=== PATIENT | female | born 1945 | race Caucasian/White ===

== ENCOUNTER 2016-10-23 08:40 | Outpatient (CLI) | payer MEDICARE, OTHER | END 2016-10-23 08:41 | DX: E55.9 Vitamin D deficiency, unspecified (principal); E03.9 Hypothyroidism, unspecified; Z79.899 Other long term (current) drug therapy; I10 Essential (primary) hypertension; Z98.0 Intestinal bypass and anastomosis status; R30.0 Dysuria ==

== ENCOUNTER 2016-11-12 13:01 | Outpatient (CLI) | payer MEDICARE, OTHER | END 2016-11-12 13:02 | disposition home or self-care (01) | DX: G47.33 Obstructive sleep apnea (adult) (pediatric) (principal) | CPT/HCPCS: 99214; G0463 ==

== ENCOUNTER 2016-11-27 15:01 | Outpatient (CLI) | payer MEDICARE, OTHER | END 2016-11-27 15:02 | disposition critical access hospital (66) | DX: M54.5 Low back pain (principal); M25.551 Pain in right hip; M79.604 Pain in right leg; W19.XXXA Unspecified fall, initial encounter; Y92.002 Bathroom of unspecified non-institutional (private) residence as the place of occurrence of the external cause | CPT/HCPCS: A0425; A0429 ==

== ENCOUNTER 2016-11-27 15:09 | Emergency (ER) | payer MEDICARE, OTHER ==
[2016-11-27] MEDS ORDERED: oxyCOD/ACETAMIN 5 MG/325 MG TABLET PO STA ×2 (15:16→15:17)
[2016-11-27] MEDS ORDERED: oxyCOD/ACETAMIN 5 MG/325 MG TABLET PO ONE (15:19)
== END 2016-11-27 16:32 | disposition home or self-care (01) ==
DX: S39.012A Strain of muscle, fascia and tendon of lower back, initial encounter (principal); W01.0XXA Fall on same level from slipping, tripping and stumbling without subsequent striking against object, initial encounter; G89.29 Other chronic pain; I10 Essential (primary) hypertension; Z98.1 Arthrodesis status
CPT/HCPCS: 72070; 72100; 99283; 99284; A9270

== ENCOUNTER 2016-12-03 13:59 | Outpatient (CLI) | payer MEDICARE, OTHER | END 2016-12-03 14:00 | disposition home or self-care (01) | DX: Z12.31 Encounter for screening mammogram for malignant neoplasm of breast (principal); Z80.3 Family history of malignant neoplasm of breast ==

== ENCOUNTER 2016-12-04 17:31 | Outpatient (CLI) | payer MEDICARE, OTHER | END 2016-12-04 17:32 | disposition home or self-care (01) | DX: S82.831A Other fracture of upper and lower end of right fibula, initial encounter for closed fracture (principal); M17.11 Unilateral primary osteoarthritis, right knee ==

== ENCOUNTER 2017-06-04 10:37 | Outpatient (CLI) | payer OTHER, MEDICARE ==
--- NOTE | 2017-06-04 15:23 | XRAY Report ---
FOUR VIEW RIGHT KNEE: 06/04/2017 CLINICAL INDICATION: Pain. FINDINGS: AP, lateral, bilateral oblique views of the right knee are compared to previous films of 0 12/04/2016. Healed proximal fibular fracture is noted. Moderate osteoarthritis is present. There is no evidence o f acute fracture or dislocation. No effusion is seen. IMPRESSION: MODERATE OSTEOARTHRITIS. HEALED PROXIMAL FIBULAR FRACTURE. JOB #: [id number] EXT JOB #:[id number]
--- NOTE | 2017-06-04 15:26 | XRAY Report ---
THREE VIEW LUMBAR SPINE: 06/04/2017 CLINICAL INDICATION: Pain, DJD. COMPARISON: 11/27/2016. FINDINGS: AP, lateral, and coned down views of the lumbar spine demonstrate stable posterior eligio and pedicle screw fusion of L4 to L5, with discectomy changes and stable anterolisthesis. There is no ev idence of interval fracture or hardware complication. Degenerative disk and facet disease is present. The bowel gas pattern is normal. IMPRESSION: STABLE DEGENERATIVE CHANGES AND PREVIOUS POSTERIOR FUSION OF L4 TO L5. NO EVIDENCE OF FR ACTURE. JOB #: [id number] EXT JOB #:[id number]
== END 2017-06-04 10:38 | disposition home or self-care (01) ==
LOC: DI 10:37
PROVIDERS: ATTEND Physician Assistant Medical
DX: M17.11 Unilateral primary osteoarthritis, right knee (principal); M51.36 Other intervertebral disc degeneration, lumbar region; Z98.1 Arthrodesis status
CPT/HCPCS: 72100

== ENCOUNTER 2017-08-27 16:10 | Outpatient (CLI) | payer MEDICARE, OTHER | END 2017-08-27 16:11 | disposition home or self-care (01) | LOC: LAB.R 16:10 | PROVIDERS: ATTEND Nurse Practitioner Primary Care | DX: N39.0 Urinary tract infection, site not specified (principal) | CPT/HCPCS: 87077; 87086 ==

== ENCOUNTER 2017-10-31 08:00 | Outpatient (CLI) | payer MEDICARE, OTHER ==
[2017-10-31 14:38] LABS: BASOPHILS # (AUTO) 0.1 10^3/uL (0.0-0.1); BASOPHILS % (AUTO) 0.7 %; EOSINOPHILS # (AUTO) 0.4 10^3/uL (0.0-0.7); EOSINOPHILS % (AUTO) 5.1 %; HGB - HEMOGLOBIN 12.1 g/dL (12.0-16.0); LYMPHOCYTES # (AUTO) 2.3 10^3/uL (1.5-3.5); LYMPHOCYTES % (AUTO) 32.2 %; MEAN CORPUSCULAR HEMOGLOBIN 28.5 pg (27.0-31.0); MEAN CORPUSCULAR HGB CONC 32.9 g/dL (32.0-36.0); MEAN CORPUSCULAR VOLUME 86.5 fL (81.0-99.0); MEAN PLATELET VOLUME 10.4 fL (7.9-10.8); MONOCYTES # (AUTO) 0.6 10^3/uL (0.0-1.0); MONOCYTES % (AUTO) 8.5 %; NEUTROPHILS # (AUTO) 3.9 10^3/uL (1.5-6.6); NEUTROPHILS % (AUTO) 53.5 %; PLT - PLATELET COUNT 217 10^3/uL (130-450); RED BLOOD COUNT 4.26 10^6/uL (4.20-5.40); RED CELL DISTRIBUTION WIDTH 14.5 % (12.0-15.0); WHITE BLOOD COUNT 7.2 x10^3/uL (4.8-10.8)
[2017-10-31 15:01] LABS: ALBUMIN 3.6 g/dL (3.2-5.5); ALKALINE PHOSPHATASE 65 IU/L (42-121); ALT ALANINE AMINOTRANSFERASE 16 IU/L (10-60); AST ASPARTATE AMINOTRANSFERASE 20 IU/L (10-42); BILIRUBIN,TOTAL 0.4 mg/dL (0.2-1.0); BUN - BLOOD UREA NITROGEN 18 mg/dL (6-20); CALCIUM 8.9 mg/dL (8.5-10.3); CARBON DIOXIDE - CO2 27 mmol/L (21-32); CHLORIDE 106 mmol/L (101-111); CHOL/HDL RATIO 3.5 (<4.4); CHOLESTEROL 175 mg/dL; GFR - MDRD 55 (>89); GLUCOSE 81 mg/dL (70-100); HDL CHOLESTEROL 50 mg/dL; LDL CHOLESTEROL,CALCULATED 107 mg/dL; LDL/HDL RATIO 2.1 (<4.4); SODIUM 139 mmol/L (135-145); TOTAL PROTEIN 7.2 g/dL (6.7-8.2); VLDL CHOLESTEROL 18 mg/dL
[2017-11-01 10:21] LABS: HEPATITIS C ANTIBODY NON-REACTIVE (NON-REACTIVE)
== END 2017-10-31 08:01 | disposition home or self-care (01) ==
LOC: LAB.R 08:00
PROVIDERS: ATTEND Physician Assistant Medical
DX: E55.9 Vitamin D deficiency, unspecified (principal); I10 Essential (primary) hypertension; E03.9 Hypothyroidism, unspecified; Z79.899 Other long term (current) drug therapy; Z11.59 Encounter for screening for other viral diseases; Z72.89 Other problems related to lifestyle; E66.9 Obesity, unspecified; Z68.35 Body mass index [BMI] 35.0-35.9, adult
CPT/HCPCS: 80053; 80061; 82306; 83721; 84443; 85025; 86803

== ENCOUNTER 2017-11-25 11:19 | Outpatient (CLI) | payer MEDICARE, OTHER | END 2017-11-25 11:20 | disposition home or self-care (01) | LOC: SC 11:19 | PROVIDERS: ATTEND Nurse Practitioner Family | DX: G47.33 Obstructive sleep apnea (adult) (pediatric) (principal) | CPT/HCPCS: 99214; G0463; 99212 ==

== ENCOUNTER 2017-12-04 15:10 | Outpatient (CLI) | payer MEDICARE, OTHER ==
--- NOTE | 2017-12-05 11:50 | Mammography Report ---
DIGITAL SCREENING MAMMOGRAM: 12/04/2017 CLINICAL INDICATION: A 72-year-old with family history of breast cancer, for screening COMPARISON: 11/2016, 11/2015, 11/2014, 11/2013, 11/2012, 09/2011, 04/2010. TECHNIQUE: Routine CC and MLO projections were obtained of the breasts. FINDINGS: Parenchymal tissue within both breasts is heterogeneously dense, which may lower the sensitivity of mammography; however, there are no dominant masses, suspicious microcalcifications, or secondary signs of malignancy. In comparison to the previous studies, there are no significant changes. ASSESSMENT: NO MAMMOGRAPHIC EVIDENCE OF MALIGNANCY. NO SIGNIFICANT INTERVAL CHANGES. RECOMMENDATION: Screening mammography is recommended annually. BIRADS category 1 - negative. STANDARD QUALIFYING STATEMENTS: 1. This examination was reviewed with the aid of Computed-Aided Detection (CAD). 2. A negative or benign imaging report should not delay biopsy if clinically suspicious findings are present. Consider surgical consultation if warranted. More than 5% of cancers are not identified by imaging. 3. Dense breasts may obscure an underlying neoplasm. TD: 12/05/2017 11:49
== END 2017-12-04 15:11 | disposition home or self-care (01) ==
LOC: DI 15:10
PROVIDERS: ATTEND Physician Assistant Medical
DX: Z12.31 Encounter for screening mammogram for malignant neoplasm of breast (principal); Z80.3 Family history of malignant neoplasm of breast
CPT/HCPCS: 77067

== ENCOUNTER 2018-02-24 15:55 | Outpatient (CLI) | payer MEDICARE, OTHER ==
--- NOTE | 2018-02-25 16:21 | XRAY Report ---
Procedure Date: 02/24/2018 Accession Number: [id number] / [id number] Procedure: XR - Ankle 3 View LT CPT Code: FULL RESULT: EXAM: LEFT ANKLE RADIOGRAPHY EXAM DATE: 02/24/2018 04:53 PM. CLINICAL HISTORY: Leg pain and edema. No known trauma. COMPARISON: None. TECHNIQUE: 3 views. FINDINGS: Bones: No acute fractures or worrisome bone lesions. Calcaneal enthesophytes noted. Joints: Normal. No effusion. No subluxations. The ankle mortise is normally aligned. Soft Tissues: Diffuse soft tissue sign is present. IMPRESSION: 1. No acute fracture or osseous lesion. 2. Diffuse soft tissue swelling. RADIA
--- NOTE | 2018-02-25 16:23 | XRAY Report ---
Procedure Date: 02/24/2018 Accession Number: [id number] / [id number] Procedure: XR - Knee 4 View LT CPT Code: FULL RESULT: EXAM: LEFT KNEE RADIOGRAPHY EXAM DATE: 02/24/2018 04:53 PM. CLINICAL HISTORY: Leg pain and swelling, no known trauma. COMPARISON: None. TECHNIQUE: 3 views. FINDINGS: Bones: No acute fractures or bone lesions. Joints: No effusion. Mild to moderate degenerative changes are present. Soft Tissues: Diffuse soft tissue swelling noted. IMPRESSION: 1. No acute fracture or osseous lesion. 2. Mild to moderate degenerative changes. 3. Diffuse soft tissue swelling. RADIA
--- NOTE | 2018-02-25 16:24 | XRAY Report ---
Procedure Date: 02/24/2018 Accession Number: [id number] / [id number] Procedure: XR - Tib/Fib LT CPT Code: FULL RESULT: EXAM: LEFT TIBIA/FIBULA RADIOGRAPHY EXAM DATE: 02/24/2018 04:53 PM. CLINICAL HISTORY: LEG PAIN,LEFT. COMPARISON: None. TECHNIQUE: 2 views. FINDINGS: Bones: No acute fracture or bone lesion. Joints: Normal alignment. Soft Tissues: Diffuse soft tissue swelling. Vascular calcifications noted. IMPRESSION: 1. No acute fracture or osseous abnormality. 2. Diffuse soft tissue swelling. RADIA
--- NOTE | 2018-03-04 13:52 | Ultrasound Report ---
Procedure Date: 02/24/2018 Accession Number: [id number] / [id number] Procedure: US - Duplex Ext Veins Left CPT Code: FULL RESULT: EXAM: Duplex Ext Veins Left DATE: 02/24/2018 5:06 PM CLINICAL HISTORY: LEG PAIN,LEFT COMPARISON: 04/03/2015 TECHNIQUE: Real-time sonographic vascular imaging was performed by the asphalt coater through the lower extremity utilizing both color-flow and Doppler spectral analysis. Multiple outside dealer sales representative static images were saved for review. FINDINGS: Common Femoral Vein (CFV): Normal. Superficial Femoral Vein (SFV) Prox: Normal. Superficial Femoral Vein (SFV) Mid: Normal. Superficial Femoral Vein (SFV) Dist: Normal. Popliteal Vein: Normal. Posterior Tibial Veins: Normal. Peroneal Veins: Normal. Other: None. IMPRESSION: Normal. No evidence for deep venous thrombosis. RADIA
== END 2018-02-24 15:56 | disposition home or self-care (01) ==
LOC: DI 15:55
PROVIDERS: ATTEND Physician Assistant Medical
DX: M79.605 Pain in left leg (principal); R60.0 Localized edema

== ENCOUNTER 2018-02-24 16:51 | Outpatient (CLI) | payer MEDICARE, OTHER | END 2018-02-24 16:52 | disposition home or self-care (01) | LOC: DI 16:51 | PROVIDERS: ATTEND Physician Assistant Medical | DX: M79.605 Pain in left leg (principal); R60.0 Localized edema ==

== ENCOUNTER 2018-03-11 12:01 | Outpatient (CLI) | payer MEDICARE, OTHER ==
[2018-03-11 16:11] LABS: BASOPHILS % (AUTO) 0.6 %; EOSINOPHILS # (AUTO) 0.3 10^3/uL (0.0-0.7); EOSINOPHILS % (AUTO) 4.5 %; HGB - HEMOGLOBIN 12.8 g/dL (12.0-16.0); LYMPHOCYTES # (AUTO) 2.4 10^3/uL (1.5-3.5); LYMPHOCYTES % (AUTO) 34.8 %; MEAN CORPUSCULAR HEMOGLOBIN 28.6 pg (27.0-31.0); MEAN CORPUSCULAR HGB CONC 32.3 g/dL (32.0-36.0); MEAN CORPUSCULAR VOLUME 88.7 fL (81.0-99.0); MEAN PLATELET VOLUME 10.5 fL (7.9-10.8); MONOCYTES # (AUTO) 0.5 10^3/uL (0.0-1.0); MONOCYTES % (AUTO) 7.7 %; NEUTROPHILS # (AUTO) 3.7 10^3/uL (1.5-6.6); NEUTROPHILS % (AUTO) 52.4 %; PLT - PLATELET COUNT 213 10^3/uL (130-450); RED BLOOD COUNT 4.48 10^6/uL (4.20-5.40); RED CELL DISTRIBUTION WIDTH 14.4 % (12.0-15.0)
== END 2018-03-11 12:02 | disposition home or self-care (01) ==
LOC: LAB.R 12:01
PROVIDERS: ATTEND Physician Assistant Medical
DX: M79.605 Pain in left leg (principal); Z79.899 Other long term (current) drug therapy
CPT/HCPCS: 82607; 85025; 85651; 86140

== ENCOUNTER 2018-06-16 12:13 | Outpatient (CLI) | payer MEDICARE, OTHER ==
[2018-06-16 12:32] LABS: BASOPHILS # (AUTO) 0.1 10^3/uL (0.0-0.1); BASOPHILS % (AUTO) 0.7 %; EOSINOPHILS # (AUTO) 0.3 10^3/uL (0.0-0.7); EOSINOPHILS % (AUTO) 4.1 %; HGB - HEMOGLOBIN 13.2 g/dL (12.0-16.0); LYMPHOCYTES # (AUTO) 2.9 10^3/uL (1.5-3.5); LYMPHOCYTES % (AUTO) 34.7 %; MEAN CORPUSCULAR HEMOGLOBIN 29.3 pg (27.0-31.0); MEAN CORPUSCULAR HGB CONC 33.6 g/dL (32.0-36.0); MEAN CORPUSCULAR VOLUME 87.1 fL (81.0-99.0); MEAN PLATELET VOLUME 9.6 fL (7.9-10.8); MONOCYTES # (AUTO) 0.8 10^3/uL (0.0-1.0); MONOCYTES % (AUTO) 9.4 %; NEUTROPHILS # (AUTO) 4.3 10^3/uL (1.5-6.6); NEUTROPHILS % (AUTO) 51.1 %; PLT - PLATELET COUNT 219 10^3/uL (130-450); RED BLOOD COUNT 4.52 10^6/uL (4.20-5.40); RED CELL DISTRIBUTION WIDTH 14.2 % (12.0-15.0); WHITE BLOOD COUNT 8.4 x10^3/uL (4.8-10.8)
[2018-06-16 12:50] LABS: ALBUMIN 4.2 g/dL (3.2-5.5); ALBUMIN/GLOBULIN RATIO 1.1 (1.0-2.2); ALKALINE PHOSPHATASE 70 IU/L (42-121); ALT ALANINE AMINOTRANSFERASE 23 IU/L (10-60); AST ASPARTATE AMINOTRANSFERASE 24 IU/L (10-42); BILIRUBIN,TOTAL 0.7 mg/dL (0.2-1.0); BUN - BLOOD UREA NITROGEN 21 mg/dL (6-20); CALCIUM 9.3 mg/dL (8.5-10.3); CARBON DIOXIDE - CO2 28 mmol/L (21-32); CHLORIDE 102 mmol/L (101-111); GFR - MDRD 55 (>89); GLUCOSE 93 mg/dL (70-100); SODIUM 136 mmol/L (135-145); TOTAL PROTEIN 8.1 g/dL (6.7-8.2)
[2018-06-16 13:09] LABS: CRP - C-REACTIVE PROTEIN < 1.0 mg/dL (0-1.0)
--- NOTE | 2018-06-16 14:00 | XRAY Report ---
Reason: LEG PAIN,LEFT,BACK PAIN LUMBAR Procedure Date: 06/16/2018 Accession Number: [id number] / [id number] Procedure: XR - Lumbar Spine Complete CPT Code: FULL RESULT: EXAM: LUMBOSACRAL SPINE RADIOGRAPHY EXAM DATE: 06/16/2018 01:01 PM. CLINICAL HISTORY: History of lumbar surgery. Acute low back and left leg pain. COMPARISONS: Lumbar spine complete 06/04/2017. TECHNIQUE: 5 views. FINDINGS: Alignment: Stable 8 mm anterior subluxation L4 on L5. Stable 5 mm anterior subluxation L5 on S1. Bones: Five [id number]-[id number] lumbar vertebral bodies are present. Old mild wedging T12. Disks: Remote L4-L5 interbody and posterior fusion. Good distraction of the L4-L5 disk space. Increasing narrowing of L5-S1 now moderate to marked in degree with mild bony reactive changes. Facets: Moderate degenerative changes L5-S1 facets. Sacroiliac Joints: Unremarkable. Soft Tissues: Cholecystectomy. IMPRESSION: 1. No acute bony abnormality. 2. Stable L4-L5 fusion. 3. Progression of degenerative disk disease L5-S1 now moderate in degree. RADIA
== END 2018-06-16 12:14 | disposition home or self-care (01) ==
LOC: LAB 12:13 → DI 12:14
PROVIDERS: ATTEND Physician Assistant Medical
DX: M47.9 Spondylosis, unspecified (principal); M51.37 Other intervertebral disc degeneration, lumbosacral region; Z98.1 Arthrodesis status; M79.605 Pain in left leg
CPT/HCPCS: 36415; 72110; 80053; 85025; 85651; 86140

== ENCOUNTER 2018-07-01 10:25 | Outpatient (CLI) | payer MEDICARE, OTHER ==
--- NOTE | 2018-07-01 14:08 | XRAY Report ---
Reason: KNEE PAIN,RIGHT STANDING, BACK PAIN LUMBAR FLEX/EX Procedure Date: 07/01/2018 Accession Number: [id number] / [id number] Procedure: XR - Knee 3 View BILAT CPT Code: FULL RESULT: EXAMS: 1. Right Knee Radiography 2. Left Knee Radiography EXAM DATE:07/01/2018 11:11 AM. CLINICAL HISTORY:KNEE PAIN,RIGHT STANDING, BACK PAIN LUMBAR FLEX/EX. COMPARISON: Left knee 02/24/2018 and right knee 06/04/2017. TECHNIQUE: 3 views each. FINDINGS: Right Knee: Bones: No fractures or bone lesions. Joints: There is moderate to severe joint space narrowing and hypertrophic change of the lateral femorotibial compartment. There are moderate to severe degenerative changes of the patellofemoral joint. Soft Tissues: No effusion. No soft tissue swelling. Left Knee: Bones: No fractures or bone lesions. Joints: There are mild degenerative changes of the medial and lateral femorotibial compartments. There are moderate degenerative changes of the patellofemoral joint. Soft Tissues: No effusion. No soft tissue swelling. IMPRESSION: 1. Moderate to severe right knee osteoarthritis 2. Mild to moderate left knee osteoarthritis RADIA
--- NOTE | 2018-07-01 14:44 | XRAY Report ---
Reason: LOW BACK PAIN Procedure Date: 07/01/2018 Accession Number: [id number] / [id number] Procedure: XR - Lumbar Spine w/Flex/Ext CPT Code: FULL RESULT: EXAM: LUMBOSACRAL SPINE RADIOGRAPHY EXAM DATE: 07/01/2018 11:11 AM. CLINICAL HISTORY: Low back pain. COMPARISONS: Lumbar spine complete 06/16/2018 12:23 PM. TECHNIQUE: AP, lateral neutral, flexion, and extension views. FINDINGS: The patient is status post L4-L5 diskectomy with posterior decompression and fusion in the setting of L4 on L5 anterolisthesis, approximately 3 mm and unchanged compared to the recent study. Hardware including pedicle screws and bilateral interlocking rods at the L4-L5 level and the interbody graft appear unchanged. There is no osseous fusion between the vertebral bodies of L4 and L5 as yet. Fusion of the posterior elements at L4 and L5 likely is the result of bone graft material placement. The majority of lumbar spinal motion occurs at L2-L3 and to a lesser degree at L3-L4. IMPRESSION: Status post lumbar fusion with motion predominantly at L2-L3 as described. RADIA
== END 2018-07-01 10:26 | disposition home or self-care (01) ==
LOC: DI 10:25
PROVIDERS: ATTEND Physician Assistant Medical
DX: M17.0 Bilateral primary osteoarthritis of knee (principal); Z98.1 Arthrodesis status; M54.5 Low back pain
CPT/HCPCS: 72114

== ENCOUNTER 2018-11-15 19:24 | Emergency (ER) | payer MEDICARE, OTHER ==
--- NOTE | 2018-11-15 19:53 | ED Physician Documentation ---
History of Present Illness - Stated complaint Stated Complaint: LEG PAIN, JAW TIGHTENED UP AND SHAKING - Chief complaint Chief Complaint: General - History obtained from History obtained from: Patient, Family - History of Present Illness Timing: Today (This is a 73-year-old woman with hypertension and chronic incontinence who presents with shaking chills that started about 5 PM. She describes cramps in the back of both of her legs and then she was shaking uncontrollably especially in her arms. She felt cold the whole time. She denies runny nose cough or new urinary complaints.) Review of Systems Constitutional: reports: Chills. denies: Fever, Fatigue Nose: denies: Rhinorrhea / runny nose, Congestion Throat: denies: Dental pain / toothache, Sore throat Respiratory: denies: Dyspnea, Cough GI: denies: Abdominal Pain, Nausea, Vomiting, Diarrhea PD PAST MEDICAL HISTORY - Past Medical History Past Medical History: Yes Cardiovascular: Hypertension Respiratory: Sleep apnea Endocrine/Autoimmune: HyPOthyroidism GI: Hiatal hernia [employer]: Other Musculoskeletal: Chronic back pain - Past Surgical History Past Surgical History: Yes General: Gastric surgery Ortho: Spine surgery /[employer]: section - Present Medications Home Medications: Ambulatory Orders Medication Instructions Recorded Confirmed Gabapentin 300 mg PO BID 11/27/16 11/27/16 Levothyroxine Sodium [Levoxyl] 200 mcg PO DAILY 11/27/16 11/27/16 Lidocaine Patch 5% [Lidoderm Patch] 5 TD PRN PRN 11/27/16 Losartan Potassium [Cozaar] 100 mg PO DAILY 11/27/16 11/27/16 Oxycodone HCl/Acetaminophen 1 - 2 each PO Q6H PRN #14 tablet 11/27/16 [Percocet 5-325 mg Tablet] Ciprofloxacin HCl [Cipro] 500 mg PO BID #14 tablet 11/15/18 Omeprazole 20 mg PO DAILY 11/15/18 11/15/18 - Allergies Allergies/Adverse Reactions: Allergies Allergy/AdvReac Type Severity Reaction Status Date / Time Sulfa (Sulfonamide Allergy Hives Verified 11/15/18 19:31 Antibiotics) tape Allergy Rash Uncoded 11/15/18 19:31 - Social History Does the pt smoke?: No Smoking Status: Never smoker Does the pt drink ETOH?: No Does the pt have substance abuse?: No - Immunizations Immunizations are current?: Yes - POLST Patient has POLST: No PD ED PE NORMAL - Vitals Vital signs reviewed: Yes - General General: Alert and oriented X 3, No acute distress - HEENT HEENT: PERRL, EOMI, Pharynx benign - Neck Neck: Supple, no meningeal sign, No bony TTP - Cardiac Cardiac: RRR, No murmur - Respiratory Respiratory: No respiratory distress, Clear bilaterally - Abdomen Abdomen: Soft, Non tender - Derm Derm: No rash - Extremities Extremities: No deformity, No tenderness to palpate, No edema, No calf tendernes s / cord - Neuro Neuro: Alert and oriented X 3, Normal speech Results - Vitals Vitals: Vital Signs - 24 hr 11/15/18 11/15/18 19:26 19:49 Temperature 36.7 C Heart Rate 92 97 Respiratory 16 16 Rate Blood Pressure 198/59 H 153/80 H O2 Saturation 97 100 Oxygen O2 Source Room air - Labs Labs: Laboratory Tests 11/15/18 11/15/18 11/15/18 19:47 19:53 20:05 WBC 7.3 RBC 4.46 Hgb 13.0 Hct 38.7 MCV 86.7 MCH 29.2 MCHC 33.7 RDW 14.0 Plt Count 240 MPV 9.5 Neut # (Auto) 6.7 H Lymph # (Auto) 0.6 L [place] # (Auto) 0.0 Eos # (Auto) 0.0 Baso # (Auto) 0.0 Absolute Nucleated RBC 0.00 Nucleated RBC % 0.0 Sodium Potassium Chloride Carbon Dioxide Anion Gap BUN Creatinine Estimated GFR (MDRD) Glucose Lactic Acid Calcium Total Bilirubin AST ALT Alkaline Phosphatase Total Protein Albumin Globulin Albumin/Globulin Ratio Lipase Urine Color YELLOW Urine Clarity HAZY Urine pH 6.5 Ur Specific [place] 1.010 Urine Protein NEGATIVE Urine Glucose (UA) NEGATIVE Urine Ketones NEGATIVE Urine Occult Blood TRACE-INTA Urine Nitrite POSITIVE H Urine Bilirubin NEGATIVE Urine Urobilinogen 0.2 (NORMAL) Ur Leukocyte Esterase MODERATE H Urine RBC 0-5 Urine WBC 11-25 H Urine WBC Clumps Ur Squamous Epith Cells MANY Squamous H Urine Bacteria Many H Ur Microscopic Review INDICATED Urine Culture Comments NOT INDICATED Influenza A (Rapid) Negative Influenza B (Rapid) Negative 11/15/18 11/15/18 11/15/18 20:05 20:05 21:20 WBC RBC Hgb Hct MCV MCH MCHC RDW Plt Count MPV Neut # (Auto) Lymph # (Auto) [place] # (Auto) Eos # (Auto) Baso # (Auto) Absolute Nucleated RBC Nucleated RBC % Sodium 140 Potassium 3.7 Chloride 103 Carbon Dioxide 25 Anion Gap 12.0 BUN 22 H Creatinine 0.9 Estimated GFR (MDRD) 61 L Glucose 98 Lactic Acid 1.8 Calcium 9.5 Total Bilirubin 0.7 AST 26 ALT 16 Alkaline Phosphatase 76 Total Protein 7.6 Albumin 4.0 Globulin 3.6 Albumin/Globulin Ratio 1.1 Lipase 37 Urine Color YELLOW Urine Clarity CLEAR Urine pH 6.0 Ur Specific [place] 1.015 Urine Protein NEGATIVE Urine Glucose (UA) NEGATIVE Urine Ketones NEGATIVE Urine Occult Blood TRACE-INTA Urine Nitrite POSITIVE H Urine Bilirubin NEGATIVE Urine Urobilinogen 0.2 (NORMAL) Ur Leukocyte Esterase MODERATE H Urine RBC 6-10 H Urine WBC 11-25 H Urine WBC Clumps PRESENT Ur Squamous Epith Cells RARE Squamous Urine Bacteria Many H Ur Microscopic Review INDICATED Urine Culture Comments INDICATED Influenza A (Rapid) Influenza B (Rapid) PD MEDICAL DECISION MAKING - ED course ED course: This is a 73-year-old woman who is afebrile but presents with shaking chills. She has reassuring blood work with regard to sepsis standpoint, initial urinalysis was contaminated but suspicious and a cath UA was confirmative of the source. She was administered IM Rocephin here. Departure - Departure Disposition: 01 Home, Self Care Clinical Impression: Shaking chills UTI (urinary tract infection) Qualifiers: Urinary tract infection type: site unspecified Hematuria presence: without hematuria Qualified Code(s): N39.0 - Urinary tract infection, site not specified Condition: Good Record reviewed to determine appropriate education?: Yes Instructions: Pyelonephritis Dc Prescriptions: Ciprofloxacin HCl [Cipro] 500 mg PO BID #14 tablet Comments: We will culture your urine, the results should be done in 48-72 hours. If an antibiotic change is necessary we will call you. Return if worse in the meantime, especially if you develop increasing flank pain, fevers, or cannot keep down the medication. Follow-up with your doctor for recheck midweek Your blood pressure was elevated today on check into the emergency department. This does not mean that you have hypertension, it is a common phenomenon to come to the emergency department and have elevated blood pressure. I recommend that you see your primary care physician within the week to have it rechecked when you are feeling better.
[2018-11-15 20:08] LABS: BILIRUBIN,URINE NEGATIVE (NEGATIVE); GLUCOSE, URINE (UA) NEGATIVE (NEGATIVE); KETONES,URINE (UA) NEGATIVE (NEGATIVE); LEUKOCYTE ESTERASE, URINE MODERATE (NEGATIVE); NITRITE,URINE POSITIVE (NEGATIVE); OCCULT BLOOD,URINE TRACE-INTA (NEGATIVE); PH,URINE 6.5 PH (5.0-7.5); PROTEIN,URINE NEGATIVE (NEGATIVE); UROBILINOGEN,URINE 0.2 (NORMAL) E.U./dL (NORMAL)
[2018-11-15 20:15] LABS: BASOPHILS % (AUTO) 0.3 %; EOSINOPHILS % (AUTO) 0.5 %; LYMPHOCYTES # (AUTO) 0.6 10^3/uL (1.5-3.5); MEAN CORPUSCULAR HEMOGLOBIN 29.2 pg (27.0-31.0); MEAN CORPUSCULAR HGB CONC 33.7 g/dL (32.0-36.0); MEAN CORPUSCULAR VOLUME 86.7 fL (81.0-99.0); MEAN PLATELET VOLUME 9.5 fL (7.9-10.8); MONOCYTES % (AUTO) 0.4 %; NEUTROPHILS # (AUTO) 6.7 10^3/uL (1.5-6.6); NEUTROPHILS % (AUTO) 90.8 %; PLT - PLATELET COUNT 240 10^3/uL (130-450); RED BLOOD COUNT 4.46 10^6/uL (4.20-5.40); WHITE BLOOD COUNT 7.3 x10^3/uL (4.8-10.8)
[2018-11-15 20:19] LABS: BACTERIA,URINE Many /HPF (None Seen); CLARITY,URINE HAZY (CLEAR); RBC,URINE 0-5 /HPF (0-5); SQUAMOUS EPITHELIAL CELL,UR MANY Squamous (<= Few)
[2018-11-15 20:29] LABS: ALBUMIN/GLOBULIN RATIO 1.1 (1.0-2.2); BILIRUBIN,TOTAL 0.7 mg/dL (0.2-1.0); CALCIUM 9.5 mg/dL (8.5-10.3); CREATININE 0.9 mg/dL (0.4-1.0); TOTAL PROTEIN 7.6 g/dL (6.7-8.2)
--- NOTE | 2018-11-15 20:36 | XRAY Report ---
Reason: rigors Procedure Date: 11/15/2018 Accession Number: [id number] / [id number] Procedure: XR - Chest 2 View X-Ray CPT Code: 77575 FULL RESULT: EXAM: CHEST RADIOGRAPHY EXAM DATE: 11/15/2018 08:17 PM. CLINICAL HISTORY: Rigors. COMPARISON: THORACIC SPINE 2 VIEW 11/27/2016 3:18 PM. TECHNIQUE: 2 views. FINDINGS: Lungs/Pleura: Mild bibasilar atelectasis. No focal infiltrate or effusion. Mediastinum: Heart size upper normal limits. Tortuous aorta, stable. Other: None. IMPRESSION: 1. Mild bibasilar atelectasis but no infiltrate or effusion. 2. Stable upper normal limits heart size. RADIA
[2018-11-15 21:32] LABS: BILIRUBIN,URINE NEGATIVE (NEGATIVE); GLUCOSE, URINE (UA) NEGATIVE (NEGATIVE); KETONES,URINE (UA) NEGATIVE (NEGATIVE); LEUKOCYTE ESTERASE, URINE MODERATE (NEGATIVE); NITRITE,URINE POSITIVE (NEGATIVE); OCCULT BLOOD,URINE TRACE-INTA (NEGATIVE); PROTEIN,URINE NEGATIVE (NEGATIVE); UROBILINOGEN,URINE 0.2 (NORMAL) E.U./dL (NORMAL)
[2018-11-15 21:34] LABS: CLARITY,URINE CLEAR (CLEAR)
[2018-11-15 21:42] LABS: BACTERIA,URINE Many /HPF (None Seen); SQUAMOUS EPITHELIAL CELL,UR RARE Squamous (<= Few); WBC CLUMPS,URINE PRESENT
[2018-11-15] MEDS ORDERED: cefTRIAXone 1 GM VIAL IM STA (21:42)
[2018-11-15] MEDS ORDERED: LIDOCAINE 1% 2 ML VIAL MC ONE (21:42)
[2018-11-15 22:03] VITALS: BP 143/50
== END 2018-11-15 22:10 | disposition home or self-care (01) ==
LOC: ED 19:24
DX: R68.83 Chills (without fever) (principal); R25.8 Other abnormal involuntary movements; N39.0 Urinary tract infection, site not specified; I10 Essential (primary) hypertension; E03.9 Hypothyroidism, unspecified
CPT/HCPCS: 36415; 71046; 80053; 81001; 81003; 83605; 83690; 85025; 87077; 87086; 87181; 87275; 87276; 96372; 99283

== ENCOUNTER 2018-12-03 16:54 | Outpatient (CLI) | payer MEDICARE, OTHER ==
[2018-12-03 17:30] LABS: BASOPHILS # (AUTO) 0.1 10^3/uL (0.0-0.1); BASOPHILS % (AUTO) 1.1 %; EOSINOPHILS # (AUTO) 0.2 10^3/uL (0.0-0.7); EOSINOPHILS % (AUTO) 3.3 %; LYMPHOCYTES # (AUTO) 2.6 10^3/uL (1.5-3.5); LYMPHOCYTES % (AUTO) 38.4 %; MEAN CORPUSCULAR HEMOGLOBIN 28.1 pg (27.0-31.0); MEAN CORPUSCULAR HGB CONC 32.6 g/dL (32.0-36.0); MEAN CORPUSCULAR VOLUME 86.1 fL (81.0-99.0); MEAN PLATELET VOLUME 9.4 fL (7.9-10.8); MONOCYTES # (AUTO) 0.5 10^3/uL (0.0-1.0); NEUTROPHILS # (AUTO) 3.3 10^3/uL (1.5-6.6); NEUTROPHILS % (AUTO) 49.2 %; PLT - PLATELET COUNT 241 10^3/uL (130-450); RED BLOOD COUNT 4.65 10^6/uL (4.20-5.40); RED CELL DISTRIBUTION WIDTH 13.9 % (12.0-15.0); WHITE BLOOD COUNT 6.8 x10^3/uL (4.8-10.8)
[2018-12-03 17:31] LABS: BILIRUBIN,URINE NEGATIVE (NEGATIVE); GLUCOSE, URINE (UA) NEGATIVE (NEGATIVE); KETONES,URINE (UA) NEGATIVE (NEGATIVE); LEUKOCYTE ESTERASE, URINE TRACE (NEGATIVE); NITRITE,URINE NEGATIVE (NEGATIVE); OCCULT BLOOD,URINE NEGATIVE (NEGATIVE); PH,URINE 5.5 PH (5.0-7.5); PROTEIN,URINE NEGATIVE (NEGATIVE); UROBILINOGEN,URINE 0.2 (NORMAL) E.U./dL (NORMAL)
[2018-12-03 17:32] LABS: CLARITY,URINE CLEAR (CLEAR)
[2018-12-03 17:45] LABS: ALBUMIN 4.1 g/dL (3.2-5.5); ALBUMIN/GLOBULIN RATIO 1.1 (1.0-2.2); BILIRUBIN,TOTAL 0.2 mg/dL (0.2-1.0); CALCIUM 9.4 mg/dL (8.5-10.3); TOTAL PROTEIN 7.8 g/dL (6.7-8.2)
[2018-12-03 17:49] LABS: BACTERIA,URINE Rare /HPF (None Seen); RBC,URINE 0-5 /HPF (0-5); SQUAMOUS EPITHELIAL CELL,UR FEW Squamous (<= Few)
[2018-12-03 18:40] LABS: HB2 TOTAL 14.4 g/dL; HEMOGLOBIN A1C 0.59 g/dL; HEMOGLOBIN A1C % 5.9 % (4.6-6.2)
[2018-12-03 18:59] LABS: THYROID STIMULATING HORMONE 5.84 uIU/mL (0.34-5.60)
[2018-12-03 19:01] LABS: FREE T4 (FREE THYROXINE) 1.05 ng/dL (0.58-1.64)
== END 2018-12-03 16:55 | disposition home or self-care (01) ==
LOC: LAB 16:54
PROVIDERS: ATTEND Family Medicine
DX: E03.9 Hypothyroidism, unspecified (principal); M19.90 Unspecified osteoarthritis, unspecified site; I10 Essential (primary) hypertension; M15.9 Polyosteoarthritis, unspecified; N39.0 Urinary tract infection, site not specified
CPT/HCPCS: 36415; 80053; 81001; 81003; 83036; 84439; 84443; 84466; 84481; 85025; 87086

== ENCOUNTER 2018-12-21 13:40 | Outpatient (CLI) | payer MEDICARE, OTHER ==
--- NOTE | 2018-12-21 14:57 | Mammography Report ---
Reason: MAMMOGRAPHIC SCREENING FOR BREAST CANCER Procedure Date: 12/21/2018 Accession Number: [id number] / [id number] Procedure: YO - Screening Mammo w/[place] CPT Code: FULL RESULT: EXAM: Screening Mammo w/[place] DATE: 12/21/2018 2:34 PM CLINICAL HISTORY: Routine screening, family history of breast cancer TECHNIQUE: (B) - Bilateral CC and MLO views were obtained. COMPARISON: 12/04/2017, 12/03/2016, 12/05/2015 and 11/29/2014 PARENCHYMAL PATTERN: (A) - The breasts demonstrate scattered fibroglandular densities bilaterally. FINDINGS: There is been no significant interval change. There are no suspicious masses, calcifications, or areas of distortion. IMPRESSION: Negative examination. BI-RADS category 1. RECOMMENDATION: (ANNUAL) - Recommend routine annual screening mammography. BI-RADS CATEGORY: (1) - Negative. STANDARD QUALIFYING STATEMENTS: 1. This examination was not reviewed with the aid of Computer-Aided Detection (CAD). 2. A negative or benign imaging report should not preclude biopsy if clinically suspicious findings are present. 3. Dense breasts may obscure an underlying neoplasm. 4. This examination was reviewed with the aid of 3D breast imaging (tomosynthesis).
== END 2018-12-21 13:41 | disposition home or self-care (01) ==
LOC: DI 13:40
PROVIDERS: ATTEND Family Medicine
DX: Z12.31 Encounter for screening mammogram for malignant neoplasm of breast (principal); Z80.3 Family history of malignant neoplasm of breast
CPT/HCPCS: 77063; 77067

== ENCOUNTER 2019-02-18 10:43 | Outpatient (CLI) | payer MEDICARE, OTHER | END 2019-02-18 10:44 | disposition home or self-care (01) | LOC: SC 10:43 | PROVIDERS: ATTEND Nurse Practitioner Family | DX: G47.33 Obstructive sleep apnea (adult) (pediatric) (principal) | CPT/HCPCS: 99214; G0463; 99212 ==

== ENCOUNTER 2019-02-19 14:58 | Outpatient (CLI) | payer MEDICARE, OTHER ==
[2019-02-19 15:14] LABS: BASOPHILS # (AUTO) 0.1 10^3/uL (0.0-0.1); BASOPHILS % (AUTO) 0.7 %; EOSINOPHILS # (AUTO) 0.3 10^3/uL (0.0-0.7); EOSINOPHILS % (AUTO) 3.5 %; HGB - HEMOGLOBIN 11.8 g/dL (12.0-16.0); LYMPHOCYTES # (AUTO) 2.5 10^3/uL (1.5-3.5); LYMPHOCYTES % (AUTO) 30.8 %; MEAN CORPUSCULAR HEMOGLOBIN 28.4 pg (27.0-31.0); MEAN CORPUSCULAR HGB CONC 31.3 g/dL (32.0-36.0); MEAN CORPUSCULAR VOLUME 90.6 fL (81.0-99.0); MEAN PLATELET VOLUME 10.3 fL (7.9-10.8); MONOCYTES # (AUTO) 0.7 10^3/uL (0.0-1.0); MONOCYTES % (AUTO) 8.7 %; NEUTROPHILS # (AUTO) 4.5 10^3/uL (1.5-6.6); NEUTROPHILS % (AUTO) 55.9 %; PLT - PLATELET COUNT 289 10^3/uL (130-450); RED BLOOD COUNT 4.16 10^6/uL (4.20-5.40); RED CELL DISTRIBUTION WIDTH 14.2 % (12.0-15.0)
[2019-02-19 15:22] LABS: CALCIUM 9.6 mg/dL (8.5-10.3); CREATININE 0.9 mg/dL (0.4-1.0)
[2019-02-19 17:20] LABS: T4 (THYROXINE) 8.75 ug/dL (6.09-12.23)
[2019-02-19 17:24] LABS: THYROID STIMULATING HORMONE 6.93 uIU/mL (0.34-5.60)
== END 2019-02-19 14:59 | disposition home or self-care (01) ==
LOC: LAB 14:58
PROVIDERS: ATTEND Family Medicine
DX: E03.9 Hypothyroidism, unspecified (principal); R60.0 Localized edema; I10 Essential (primary) hypertension
CPT/HCPCS: 36415; 80048; 84436; 84443; 84481; 85025

== ENCOUNTER 2019-03-01 19:41 | Outpatient (CLI) | payer MEDICARE, OTHER | END 2019-03-01 19:42 | disposition home or self-care (01) | LOC: SC 19:41 | PROVIDERS: ATTEND Internal Medicine Pulmonary Disease | DX: G47.33 Obstructive sleep apnea (adult) (pediatric) (principal) | CPT/HCPCS: 95811 ==

== ENCOUNTER 2019-04-08 11:04 | Outpatient (CLI) | payer MEDICARE, OTHER ==
[2019-04-08 12:26] VITALS: BP 154/78
--- NOTE | 2019-04-08 12:26 | SLEEP CARE CONSULTATION ---
Information from patient questionnaire entered by Damaris Lau. I have reviewed and concur with the information entered by Damaris Lau. This document represents the service I personally performed and the decisions made by me, Diana Celestin, RN, MSN, [employer]. History of Present Illness Previous diagnosis: Severe, Obstructive Sleep Apnea-Hypopnea Syndrome AHI: 40.5 Reason for CPAP/BiPAP follow up: with manual titration Equipment type: BiPAP Equipment obtained from: [facility] Mask style: Nasal pillows Mask brand: [employer] Backup mask available: Yes (Has a sample [employer] nasal pillows) Last cushion change: 1 month ago HPI additional information: Patient returns for follow up of manual titration study. She reports that her sleep was interrrupted by inability to change position due to difficulty to move in different position was unable in this bed. At her home there is a headboard that she uses to help move. Sleep Study - Polysomnography Polysomnography findings: The quality of the study is good. CPAP was initiated at 10 cmH2O and titrated up to CPAP at 12 cmH2O. CPAP at 10 cmH2O appeared to be optimal (AHI of 0 per hour on the pressure). There was supine REM sleep on the pressure. Oxygen saturation was normal throughout the night (average oxygen saturation of 93% and celina oxygen saturation of 90%). The patient appeared to have tolerated positive airway pressure therapy fairly well. The patients sleep efficiency was reduced due to three prolonged awakenings after the sleep onset. The sleep architecture was otherwise normal. There was no significant periodic limb movement of sleep. Cardiac rhythm was normal sinus rhythm without significant arrhythmia. No abnormal behavior (parasomnia) observed during the night. CPAP Compliance Data - Data Reviewed with Patient Average duration of nightly device use: 7.95 Compliance rate %: 96.7 Current pressure setting (cmH2O): 16/10 Humidity settin Heated hose settin Average residual AHI: 1.5 Average large leak: 3 hrs 18 mins Subjective Missed days of use due to: reports: other (unknown day of less data - uses every night) Patient concerns: reports: mask discomfort, nasal congestion (seasonal congestion not interferring with use of the PAP), dry mouth, nose, throat (slight in the morning.), other (Current mask headgear dislodging in sleep. ). denies: aerophagia, air blowing in eyes, mask leak noise, condensation in mask/hose, epistaxis Observed to snore while using device: No On therapy, patient: reports: sleeping better, awakening more refreshed, being more awake and alert during the day, more rested overall. denies: drowsiness while driving Initial Bigelow Sleepiness Scale score: 7 Current Bigelow Sleepiness Scale score: 3 Allergies and Home Medications Known drug allergies: Yes (levaquin, flexeril, sulfa, baclofen, augmentin, paper tape and other adhesi) Home medication list reviewed: Yes Allergy and home medication list: Medication List Medication Name (generic/name brand) Strength & Dosage Gabapentin 300mg cap one am and two pm Losartan Potassium 100mg tab one daily Synthroid 200mcg tab eight per week Vitamin D3 5000Unit one daily Colace 100mg cap one daily PRN Vitamin B-12 1000mcg tab one daily Probiotic Daily Oral Cap Cap one daily Calcium Citrate +D 315-250mg tab one twice daily Fiber Gummies 2GM tab one daily Multivitamin Tab one daily Claritin 10mg cap one daily as needed Naphcon-A 0.025-0.3% ophthalmic soln One-two drops daily as needed Cranberry 500mg cap one daily Lidoderm 5% external patch One daily prn Omeprazole DR 20mg cap one daily Allergy List Levaquin Flexeril Sulfa Baclofen Augmentin Paper tape Review of Systems Review of systems same as previous: Yes Physical Exam Blood Pressure: 154/78 Cuff size: long Heart Rate: 72 O2 Saturation: 95 Weight (kg): 276 kg Impression and Plan 1. Obstructive Sleep Apnea-Hypopnea Syndrome, severe with good treatment compliance and good apnea control. On BiPAP therapy, the patient has better sle ep quality and is more rested overall. Her recent manual titration study showed that she no longer needed BiPAP to control her apnea nor was there need for oxygen supplementation. Her BiPAP is over 5 years old and starting to make more noise in function. Thus I will update her PAP device to a CPAP set at [id number] as observed as optimal pressure. I will also stop the oxygen supplementation as no longer needed per study results. Since she is having difficulty getting supplies, I will have my recruiting coordinator inform her of DME options. I explained that 2 companies have RTs that will come to home and she would like that option. Her oral dryness can be reduced with turning down the heated hose until she can update her device which has a better humidity system. Compliance guidelines discussed and enrique was informed that she needs to contact us to schedule follow up as soon as device is received. Patient's apnea severity and rationale for treatment to reduce apnea, improve sleep quality and reduce cardiovascular and cerebrovascular events was reviewed. I also reviewed the benefit of consistent device use of BiPAP for hypertension, fibromyalgia. She has an appointment with her PCP to again review her hypertension medications for better control. We also reviewed the importance of weight loss to overall health. * Update PAP and change to CPAP pressure at 10 cmH2O * Stop oxygen - [employer] * Transfer to new DME * Adjust heated hose * Notify me if snoring with mask or feeling that the pressure is too much or too little * Attempt to lose weight * Return for follow up in 1 month after new device, or sooner if concerns arise I spent 100% of this 43 minute visit face to face with the patient with greater than 50% of this was spent time counseling the patient and coordination of care.
== END 2019-04-08 11:05 | disposition home or self-care (01) ==
LOC: SC 11:04
PROVIDERS: ATTEND Nurse Practitioner Family
DX: G47.33 Obstructive sleep apnea (adult) (pediatric) (principal)
CPT/HCPCS: 99215; G0463; 99212

== ENCOUNTER 2019-05-03 22:15 | Emergency (ER) | payer MEDICARE, OTHER ==
[2019-05-03 22:54] LABS: BILIRUBIN,URINE NEGATIVE (NEGATIVE); CLARITY,URINE CLEAR (CLEAR); GLUCOSE, URINE (UA) NEGATIVE (NEGATIVE); KETONES,URINE (UA) NEGATIVE (NEGATIVE); LEUKOCYTE ESTERASE, URINE NEGATIVE (NEGATIVE); NITRITE,URINE NEGATIVE (NEGATIVE); OCCULT BLOOD,URINE NEGATIVE (NEGATIVE); PROTEIN,URINE NEGATIVE (NEGATIVE); UROBILINOGEN,URINE 0.2 (NORMAL) E.U./dL (NORMAL)
--- NOTE | 2019-05-04 00:55 | ED Physician Documentation ---
PD HPI ABD PAIN - Stated complaint Stated Complaint: FEM - Chief complaint Chief Complaint: Back Pain - History obtained from History obtained from: Patient - History of Present Illness Timing - onset: How many hours ago (2) Timing - duration: Days (2) Timing - details: Abrupt onset (onset without injury, while just sitting on sofa. Left flank pain wiht nausea.), Still present, Still present in ED Quality: Aching, Pain Location: LLQ Radiation: Left flank Improved by: No: Eating Worsened by: No: Eating Associated symptoms: Nausea, Constipation (had not had BM for couple of days.). No: Fever, Vomiting, Diarrhea, Melena Similar symptoms before: Diagnosis (has had similar with UTIs in the past.) Recently seen: Not recently seen Review of Systems Constitutional: denies: Fever, Chills, Myalgias Nose: denies: Rhinorrhea / runny nose, Congestion Throat: denies: Sore throat Cardiac: denies: Chest pain / pressure Respiratory: denies: Cough GI: reports: Abdominal Pain, Nausea, Constipation. denies: Vomiting, Diarrhea, Bloody / black stool : denies: Dysuria, Frequency Skin: denies: Rash Musculoskeletal: reports: Back pain. 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 Musculoskeletal: Chronic back pain - Past Surgical History Past Surgical History: Yes General: Gastric surgery Ortho: Spine surgery /ULTRASOUND COORDINATOR: section - Present Medications Home Medications: Ambulatory Orders Medication Instructions Recorded Confirmed Gabapentin 300 mg PO BID 11/27/16 11/27/16 Levothyroxine Sodium [Levoxyl] 200 mcg PO DAILY 11/27/16 11/27/16 Lidocaine Patch 5% [Lidoderm Patch] 5 TD PRN PRN 11/27/16 Losartan Potassium [Cozaar] 100 mg PO DAILY 11/27/16 11/27/16 Oxycodone HCl/Acetaminophen 1 - 2 each PO Q6H PRN #14 tablet 11/27/16 [Percocet 5-325 mg Tablet] Ciprofloxacin HCl [Cipro] 500 mg PO BID #14 tablet 11/15/18 Omeprazole 20 mg PO DAILY 11/15/18 11/15/18 - Allergies Allergies/Adverse Reactions: Allergies Allergy/AdvReac Type Severity Reaction Status Date / Time Sulfa (Sulfonamide Allergy Hives Verified 05/03/19 22:33 Antibiotics) tape Allergy Rash Uncoded 11/15/18 19:31 - Living Situation Living Arrangement: reports: At home - Social History Does the pt smoke?: No Smoking Status: Never smoker Does the pt drink ETOH?: No Does the pt have substance abuse?: No - Immunizations Immunizations are current?: Yes - POLST Patient has POLST: No PD ED PE NORMAL - Vitals Vital signs reviewed: Yes - General General: Alert and oriented X 3, Well developed/nourished, Other (appears in pain related to left flank. Mildly guarded ROM but not tender in muscles. ) - HEENT HEENT: Atraumatic - Neck Neck: Supple, no meningeal sign, No adenopathy - Cardiac Cardiac: RRR, No murmur - Respiratory Respiratory: Clear bilaterally - Abdomen Abdomen: Normal bowel sounds, Soft, Non distended, No organomegaly, Other (mildly tender left lateral abd without guarding, percussion, nor rebound tenderness. ) - Female Female : Deferred - Rectal Rectal: Deferred - Back Back: No spinal TTP, Other (left CVA is tender to percussion. ) - Derm Derm: Normal color, Warm and dry, No rash - Extremities Extremities: No tenderness to palpate, Normal ROM s pain, No calf tenderness / cord Results - Vitals Vitals: Vital Signs - 24 hr 05/03/19 05/04/19 22:26 02:37 Temperature 36.8 C 36.6 C Heart Rate 79 71 Respiratory 18 16 Rate Blood Pressure 193/85 H 166/69 H O2 Saturation 96 98 Oxygen O2 Source Room air - Labs Labs: Laboratory Tests 05/03/19 05/04/19 05/04/19 22:48 00:50 00:52 WBC 7.6 RBC 4.69 Hgb 13.0 Hct 41.6 MCV 88.7 MCH 27.7 MCHC 31.3 L RDW 14.4 Plt Count 273 MPV 11.2 H Neut # (Auto) 4.0 Lymph # (Auto) 2.5 [place] # (Auto) 0.7 Eos # (Auto) 0.3 Baso # (Auto) 0.1 Absolute Nucleated RBC 0.00 Nucleated RBC % 0.0 Sodium Potassium Chloride Carbon Dioxide Anion Gap BUN Creatinine Estimated GFR (MDRD) Glucose Calcium Total Bilirubin AST ALT Alkaline Phosphatase Total Protein Albumin Globulin Albumin/Globulin Ratio Lipase TSH 6.00 H Urine Color YELLOW Urine Clarity CLEAR Urine pH 6.0 Ur Specific [place] 1.010 Urine Protein NEGATIVE Urine Glucose (UA) NEGATIVE Urine Ketones NEGATIVE Urine Occult Blood NEGATIVE Urine Nitrite NEGATIVE Urine Bilirubin NEGATIVE Urine Urobilinogen 0.2 (NORMAL) Ur Leukocyte Esterase NEGATIVE Ur Microscopic Review NOT INDICATED Urine Culture Comments NOT INDICATED 05/04/19 00:52 WBC RBC Hgb Hct MCV MCH MCHC RDW Plt Count MPV Neut # (Auto) Lymph # (Auto) [place] # (Auto) Eos # (Auto) Baso # (Auto) Absolute Nucleated RBC Nucleated RBC % Sodium 141 Potassium 4.7 Chloride 105 Carbon Dioxide 28 Anion Gap 8.0 BUN 22 H Creatinine 1.0 Estimated GFR (MDRD) 54 L Glucose 114 H Calcium 9.9 Total Bilirubin 0.3 AST 24 ALT 19 Alkaline Phosphatase 71 Total Protein 8.1 Albumin 4.3 Globulin 3.8 Albumin/Globulin Ratio 1.1 Lipase 38 TSH Urine Color Urine Clarity Urine pH Ur Specific [place] Urine Protein Urine Glucose (UA) Urine Ketones Urine Occult Blood Urine Nitrite Urine Bilirubin Urine Urobilinogen Ur Leukocyte Esterase Ur Microscopic Review Urine Culture Comments - Rads (name of study) kub CT Radiology: Prelim report reviewed (no kidney stones. Diverticula but no diverticulitis. No other acute process.), See rad report PD MEDICAL DECISION MAKING - ED course Complexity details: reviewed results, re-evaluated patient (pain improved with meds. Not clear the cause of the pain. SHe is feeling better though. Presume muscular?), considered differential (seems likely kidney stone or consider divertic. Pain is left so not suspicious for GB nor appendix. ), d/w patient Departure - Departure Disposition: 01 Home, Self Care Clinical Impression: Acute left flank pain Condition: Stable Record reviewed to determine appropriate education?: Yes Instructions: ED Flank Pain Uncertain Cause Follow-Up: Matty Cervantes MD [Primary Care Provider] - Comments: Stay well-hydrated. Ibuprofen or naproxen 2-3 times a day for the next few days. Add Tylenol if needed for pains. Daily stool softener for the next several days until easy bowel movements. Recheck if not improved well over the next 2 to 3 days and return sooner if worsening or other symptoms develop. Your urine test is good. Your basic blood tests are normal. No signs of kidney infection nor kidney stones or other acute process on your CT scan. You do have some diverticula but no signs of diverticulitis. It could be early on with this and so not evident as yet on CT, and so rechecking if you have worsening symptoms. Discharge Date/Time: 05/04/19 02:46
[2019-05-04 01:04] LABS: BASOPHILS # (AUTO) 0.1 10^3/uL (0.0-0.1); BASOPHILS % (AUTO) 0.7 %; EOSINOPHILS # (AUTO) 0.3 10^3/uL (0.0-0.7); EOSINOPHILS % (AUTO) 4.4 %; LYMPHOCYTES # (AUTO) 2.5 10^3/uL (1.5-3.5); LYMPHOCYTES % (AUTO) 32.3 %; MEAN CORPUSCULAR HEMOGLOBIN 27.7 pg (27.0-31.0); MEAN CORPUSCULAR HGB CONC 31.3 g/dL (32.0-36.0); MEAN CORPUSCULAR VOLUME 88.7 fL (81.0-99.0); MEAN PLATELET VOLUME 11.2 fL (7.9-10.8); MONOCYTES # (AUTO) 0.7 10^3/uL (0.0-1.0); MONOCYTES % (AUTO) 9.8 %; NEUTROPHILS % (AUTO) 52.5 %; PLT - PLATELET COUNT 273 10^3/uL (130-450); RED BLOOD COUNT 4.69 10^6/uL (4.20-5.40); RED CELL DISTRIBUTION WIDTH 14.4 % (12.0-15.0); WHITE BLOOD COUNT 7.6 x10^3/uL (4.8-10.8)
[2019-05-04 01:09] LABS: ALBUMIN 4.3 g/dL (3.2-5.5); ALBUMIN/GLOBULIN RATIO 1.1 (1.0-2.2); BILIRUBIN,TOTAL 0.3 mg/dL (0.2-1.0); CALCIUM 9.9 mg/dL (8.5-10.3); TOTAL PROTEIN 8.1 g/dL (6.7-8.2)
[2019-05-04] MEDS ORDERED: KETOROLAC 15 MG/ML VIAL IVP STA (01:10)
[2019-05-04] MEDS ORDERED: ONDANSETRON 4 MG/2 ML VIAL IVP STA (01:10)
[2019-05-04] MEDS ORDERED: MORPHINE 2 MG/ML CARPUJECT IVP STA (01:10)
--- NOTE | 2019-05-04 01:48 | CT Report ---
Reason: left flank pain onset this evening Procedure Date: 05/04/2019 Accession Number: [id number] / [id number] Procedure: CT - Abdomen/Pelvis WO CPT Code: FULL RESULT: EXAM: CT ABDOMEN AND PELVIS (CT KUB) EXAM DATE: 05/04/2019 01:34 AM. CLINICAL HISTORY: Left flank pain onset this evening. COMPARISONS: ABDOMEN/PELVIS W/WO 01/10/2014 9:54 AM ABDOMEN/PELVIS W/ 09/16/2013 1:40 PM. TECHNIQUE: Routine axial helical CT imaging was performed through the abdomen and pelvis without IV contrast. Reconstructions: Coronal and sagittal. In accordance with CT protocol optimization, one or more of the following dose reduction techniques were utilized for this exam: automated exposure control, adjustment of mA and/or KV based on patient size, or use of iterative reconstructive technique. FINDINGS: Lung Bases: Unremarkable. Right Kidney/Ureter: Stable appearance with partially malrotated relative atrophy and mild hydronephrosis without stone disease. Partially exophytic cyst appears stable. Left Kidney/Ureter: No stones, hydronephrosis, or hydroureter. No perinephric fat stranding. Other Solid Organs: Noncontrast images of the solid organs are grossly unremarkable. Gallbladder/Bile Ducts: Unremarkable post cholecystectomy. Peritoneal Cavity: Previous sleeve gastrectomy. No free fluid, free air or [place] adenopathy. Bowel is grossly unremarkable with exception of moderate stool burden and colonic diverticulosis. Normal appendix. Pelvic Organs: No bladder stones or wall thickening. Noncontrast images of the visualized pelvic organs are unremarkable. Vasculature: Unremarkable. Other: Previous L4-L5 posterior fusion. No acute osseous abnormality seen. IMPRESSION: 1. No left urinary tract stones or obstruction. 2. 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 3. Moderate stool burden and colonic diverticulosis. 4. Previous cholecystectomy and sleeve gastrectomy. RADIA
[2019-05-04] MEDS ORDERED: DOCUSATE SODIUM 100 MG CAPSULE PO STA (01:51)
[2019-05-04 02:39] VITALS: BP 166/69
== END 2019-05-04 02:46 | disposition home or self-care (01) ==
LOC: ED 22:15
DX: R10.32 Left lower quadrant pain (principal); K57.30 Diverticulosis of large intestine without perforation or abscess without bleeding; I10 Essential (primary) hypertension
CPT/HCPCS: 36415; 74176; 81003; 83690; 96374; 96375; 99284; A9270; 80053; 81001; 84443; 85025; 87086

== ENCOUNTER 2019-06-09 14:32 | Outpatient (CLI) | payer MEDICARE, OTHER | END 2019-06-09 14:33 | disposition short-term general hospital (02) | LOC: EMS 14:32 | PROVIDERS: ATTEND Surgery | DX: M25.562 Pain in left knee (principal); Z96.652 Presence of left artificial knee joint | CPT/HCPCS: A0425; A0429 ==

== ENCOUNTER 2019-06-23 02:58 | Outpatient (CLI) | payer MEDICARE, OTHER | END 2019-06-23 02:59 | disposition EMS.NT | LOC: EMS 02:58 | PROVIDERS: ATTEND Surgery | DX: Z03.89 Encounter for observation for other suspected diseases and conditions ruled out (principal) ==

== ENCOUNTER 2019-06-28 16:28 | Outpatient (CLI) | payer MEDICARE, OTHER ==
[2019-06-28 17:11] LABS: CALCIUM 9.6 mg/dL (8.5-10.3); MAGNESIUM 2.1 mg/dL (1.7-2.8)
[2019-06-28 17:12] LABS: BASOPHILS # (AUTO) 0.1 10^3/uL (0.0-0.1); BASOPHILS % (AUTO) 0.8 %; EOSINOPHILS # (AUTO) 0.2 10^3/uL (0.0-0.7); EOSINOPHILS % (AUTO) 2.4 %; HGB - HEMOGLOBIN 9.3 g/dL (12.0-16.0); LYMPHOCYTES # (AUTO) 1.4 10^3/uL (1.5-3.5); LYMPHOCYTES % (AUTO) 16.8 %; MEAN CORPUSCULAR HEMOGLOBIN 27.9 pg (27.0-31.0); MEAN CORPUSCULAR HGB CONC 30.5 g/dL (32.0-36.0); MEAN CORPUSCULAR VOLUME 91.6 fL (81.0-99.0); MEAN PLATELET VOLUME 9.7 fL (7.9-10.8); MONOCYTES # (AUTO) 0.8 10^3/uL (0.0-1.0); MONOCYTES % (AUTO) 9.3 %; NEUTROPHILS # (AUTO) 5.9 10^3/uL (1.5-6.6); NEUTROPHILS % (AUTO) 70.2 %; PLT - PLATELET COUNT 567 10^3/uL (130-450); RED BLOOD COUNT 3.33 10^6/uL (4.20-5.40); RED CELL DISTRIBUTION WIDTH 15.7 % (12.0-15.0); WHITE BLOOD COUNT 8.4 x10^3/uL (4.8-10.8)
[2019-06-28 17:33] LABS: THYROID STIMULATING HORMONE 5.31 uIU/mL (0.34-5.60)
[2019-06-28 17:35] LABS: FREE T4 (FREE THYROXINE) 1.09 ng/dL (0.58-1.64)
== END 2019-06-28 16:29 | disposition home or self-care (01) ==
LOC: LAB 16:28
PROVIDERS: ATTEND Family Medicine
DX: Z96.653 Presence of artificial knee joint, bilateral (principal); E03.9 Hypothyroidism, unspecified; I10 Essential (primary) hypertension
CPT/HCPCS: 36415; 80048; 83735; 84439; 84443; 84481; 85025

== ENCOUNTER 2019-10-01 12:49 | Outpatient (CLI) | payer MEDICARE, OTHER ==
[2019-10-01 13:21] LABS: ABSOLUTE RETICS # AUTO 0.041 10^6/uL (0.020-0.110); BASOPHILS % (AUTO) 0.8 %; EOSINOPHILS # (AUTO) 0.2 10^3/uL (0.0-0.7); EOSINOPHILS % (AUTO) 4.1 %; HGB - HEMOGLOBIN 11.4 g/dL (12.0-16.0); LYMPHOCYTES # (AUTO) 1.2 10^3/uL (1.5-3.5); LYMPHOCYTES % (AUTO) 24.7 %; MEAN CORPUSCULAR HEMOGLOBIN 25.1 pg (27.0-31.0); MEAN CORPUSCULAR HGB CONC 30.7 g/dL (32.0-36.0); MEAN CORPUSCULAR VOLUME 81.5 fL (81.0-99.0); MEAN PLATELET VOLUME 10.8 fL (7.9-10.8); MONOCYTES # (AUTO) 0.5 10^3/uL (0.0-1.0); NEUTROPHILS # (AUTO) 2.9 10^3/uL (1.5-6.6); NEUTROPHILS % (AUTO) 59.2 %; PLT - PLATELET COUNT 295 10^3/uL (130-450); RED BLOOD COUNT 4.55 10^6/uL (4.20-5.40); WHITE BLOOD COUNT 4.9 x10^3/uL (4.8-10.8)
[2019-10-01 13:25] LABS: CALCIUM 9.5 mg/dL (8.5-10.3)
[2019-10-01 14:11] LABS: HEMOGLOBIN A1C 0.55 g/dL; HEMOGLOBIN A1C % 6.7 % (4.6-6.2)
[2019-10-01 14:25] LABS: THYROID STIMULATING HORMONE 2.93 uIU/mL (0.34-5.60)
[2019-10-01 14:27] LABS: FREE T4 (FREE THYROXINE) 1.08 ng/dL (0.58-1.64)
== END 2019-10-01 12:50 | disposition home or self-care (01) ==
LOC: LAB 12:49
PROVIDERS: ATTEND Family Medicine
DX: D62 Acute posthemorrhagic anemia (principal); Z96.653 Presence of artificial knee joint, bilateral; E03.9 Hypothyroidism, unspecified; R60.0 Localized edema; R73.09 Other abnormal glucose
CPT/HCPCS: 36415; 80048; 83036; 84439; 84443; 84481; 85025; 85045

== ENCOUNTER 2020-03-15 12:19 | Outpatient (CLI) | payer MEDICARE, OTHER | END 2020-03-15 12:20 | disposition home or self-care (01) | LOC: COV 12:19 | PROVIDERS: ATTEND Family Medicine | DX: M79.10 Myalgia, unspecified site (principal); R53.83 Other fatigue; Z20.828 Contact with and (suspected) exposure to other viral communicable diseases ==

== ENCOUNTER 2020-04-20 12:56 | Outpatient (CLI) | payer MEDICARE, OTHER ==
--- NOTE | 2020-04-21 09:08 | Mammography Report ---
BILATERAL DIGITAL SCREENING MAMMOGRAM 3D/2D: 04/20/2020 CLINICAL: Routine screening. Comparison is made to exams dated: 12/21/2018 mammogram, 12/04/2017 mammogram, 12/03/2016 mammogram, 07/2016 mammogram, 11/29/2014 mammogram, and 12/09/2013 mammogram - [facility]. The t issue of both breasts is heterogeneously dense. This may lower the sensitivity of mammography. No significant masses, calcifications, or other findings are seen in either breast. There has been no significant interval change. IMPRESSION: NEGATIVE There is no mammographic evidence of malignancy. A 1 year screening mammogram is recommended. This exam was interpreted at Station ID: [id number]. NOTE: For mammograms, a report in lay terms will be sent to the patient. Approximately 15% of breast malignancies will not be visualized mammographically. In the management of a palpable breast mass, a negative mammogram must not discourage biopsy of a clinically suspicious lesion. Electronically Signed By: Bob Gasca M.D. ddp/penrad:04/20/2020 16:10:40 ACR BI-RADS Category 1: Negative 3341F PARENCHYMAL PATTERN: (D) - The breast(s) demonstrate(s) heterogeneously dense fibroglandular bharathi brian. BI-RADS CATEGORY: (1) - 1 RECOMMENDATION: (ANNUAL) - Recommend routine annual screening mammography. [id number] 1 year screening LATERALITY: (B)
== END 2020-04-20 12:57 | disposition home or self-care (01) ==
LOC: DI 12:56
DX: Z12.31 Encounter for screening mammogram for malignant neoplasm of breast (principal)
CPT/HCPCS: 77063; 77067

== ENCOUNTER 2020-05-04 08:00 | Outpatient (CLI) | payer MEDICARE, OTHER ==
[2020-05-04 18:29] LABS: BASOPHILS # (AUTO) 0.1 10^3/uL (0.0-0.1); BASOPHILS % (AUTO) 0.8 %; EOSINOPHILS # (AUTO) 0.2 10^3/uL (0.0-0.7); HGB - HEMOGLOBIN 13.1 g/dL (12.0-16.0); LYMPHOCYTES # (AUTO) 1.5 10^3/uL (1.5-3.5); LYMPHOCYTES % (AUTO) 25.4 %; MEAN CORPUSCULAR HEMOGLOBIN 28.2 pg (27.0-31.0); MEAN CORPUSCULAR HGB CONC 30.8 g/dL (32.0-36.0); MEAN CORPUSCULAR VOLUME 91.6 fL (81.0-99.0); MEAN PLATELET VOLUME 11.9 fL (7.9-10.8); MONOCYTES # (AUTO) 0.6 10^3/uL (0.0-1.0); MONOCYTES % (AUTO) 10.5 %; NEUTROPHILS # (AUTO) 3.5 10^3/uL (1.5-6.6); PLT - PLATELET COUNT 252 10^3/uL (130-450); RED BLOOD COUNT 4.65 10^6/uL (4.20-5.40); RED CELL DISTRIBUTION WIDTH 14.5 % (12.0-15.0)
[2020-05-04 19:05] LABS: ALBUMIN/GLOBULIN RATIO 1.1 (1.0-2.2); ALKALINE PHOSPHATASE 65 IU/L (42-121); ALT ALANINE AMINOTRANSFERASE 23 IU/L (10-60); AST ASPARTATE AMINOTRANSFERASE 23 IU/L (10-42); BILIRUBIN,TOTAL 0.6 mg/dL (0.2-1.0); BUN - BLOOD UREA NITROGEN 19 mg/dL (6-20); CALCIUM 9.9 mg/dL (8.5-10.3); CARBON DIOXIDE - CO2 26 mmol/L (21-32); CHLORIDE 104 mmol/L (101-111); GLUCOSE 86 mg/dL (70-100); SODIUM 137 mmol/L (135-145); TOTAL PROTEIN 7.5 g/dL (6.7-8.2)
[2020-05-04 19:08] LABS: THYROID STIMULATING HORMONE 1.04 uIU/mL (0.34-5.60)
[2020-05-04 19:10] LABS: FREE T3 2.87 pg/mL (2.5-3.9)
[2020-05-04 19:11] LABS: FREE T4 (FREE THYROXINE) 1.24 ng/dL (0.58-1.64)
[2020-05-04 19:18] LABS: CRP - C-REACTIVE PROTEIN < 1.0 mg/dL (0-1.0)
== END 2020-05-04 23:59 | disposition home or self-care (01) ==
LOC: LAB.WCP 08:00
PROVIDERS: ATTEND Family Medicine
DX: M60.9 Myositis, unspecified (principal)
CPT/HCPCS: 36415; 80053; 82553; 84439; 84443; 84481; 85025; 85651; 86140

== ENCOUNTER → 2020-05-09 | Outpatient (CLI) | payer MEDICARE, OTHER | LOC: LAB.WCP 08:00 | PROVIDERS: ATTEND Family Medicine | DX: M60.9 Myositis, unspecified (principal) | CPT/HCPCS: 36415; 81599; 82550; 82552 ==

== ENCOUNTER 2020-10-05 08:00 | Outpatient (CLI) | payer MEDICARE, OTHER ==
[2020-10-05 18:22] LABS: CALCIUM 9.3 mg/dL (8.5-10.3); CREATININE 1.1 mg/dL (0.4-1.0)
== END 2020-10-05 23:59 | disposition home or self-care (01) ==
LOC: LAB.WCP 08:00
PROVIDERS: ATTEND Family Medicine
DX: I10 Essential (primary) hypertension (principal)
CPT/HCPCS: 36415; 80048

== ENCOUNTER 2020-10-12 08:00 | Outpatient (CLI) | payer MEDICARE, OTHER ==
[2020-10-12 19:19] LABS: THYROID STIMULATING HORMONE 4.16 uIU/mL (0.34-5.60)
[2020-10-12 19:21] LABS: FREE T3 2.54 pg/mL (2.5-3.9)
[2020-10-12 19:22] LABS: FREE T4 (FREE THYROXINE) 1.06 ng/dL (0.58-1.64)
== END 2020-10-12 23:59 | disposition home or self-care (01) ==
LOC: LAB.WCP 08:00
PROVIDERS: ATTEND Family Medicine
DX: E03.9 Hypothyroidism, unspecified (principal); M60.9 Myositis, unspecified
CPT/HCPCS: 36415; 84439; 84443; 84481

== ENCOUNTER 2020-11-13 13:33 | Outpatient (CLI) | payer MEDICARE, OTHER ==
--- NOTE | 2020-11-13 14:06 | SLEEP CARE CONSULTATION ---
Information from patient questionnaire entered by Chen Vaca. I have reviewed and concur with the information entered by Chen Vaca. This document represents the service I personally performed and the decisions made by me, Scott Sauceda MD, [facility]. History of Present Illness Service Date and Time: 11/13/2020 1333 Previous diagnosis: Severe, Obstructive Sleep Apnea-Hypopnea Syndrome AHI: 40.5 Reason for follow up: annual (Last seen 09/2019) Equipment type: CPAP Equipment obtained from: [facility] Mask style: Nasal pillows Year and Where: 2012 [facility] HPI additional information: HPI: Ms. Wallace returned today for follow up of nasal CPAP therapy. She was diagnosed to have severe obstructive sleep apnea-hypopnea syndrome. The patient went to [facility] in [place] for the equipment and was fitted with the Respironics Nuance nasal pillows. She reports using the device nightly and all through the night. The compliance report shows usage in 180 nights out of the past 180 nights, averaging 8.1 hours a night. She complained of no particular problem with the device such as soreness on the face, dry nose, epistaxis, nasal congestion or headache. She thinks that the pressure of 10 cmH 2O is comfortable. On the CPAP therapy she notices improvement in her sleep quality, and that she wakes up feeling fresher in the morning and more awake/alert during the day. The Sturdivant Sleepiness Scale score 3. Her notices no snore at all. The average residual AHI is 0.6; and average time in large leak per day is 35 minutes. ROS: Same as previous. CPAP Compliance Data - Data Reviewed with Patient Average duration of nightly device use: 8 h 4 min Compliance rate %: 100 Current pressure setting (cmH2O): 10 Humidity settin Heated hose settin Average residual AHI: 0.6 Average large leak: 35 min 1 sec Subjective Patient concerns: reports: nasal congestion (due to pollen allergies) Current pressure setting perceived as: comfortable Initial Sturdivant Sleepiness Scale score: 7 (in 2012) Current Sturdivant Sleepiness Scale score: 3 Allergies and Home Medications Drug allergies reviewed: Yes Home medication list reviewed: Yes Review of Systems Review of systems same as previous: Yes Physical Exam Height: 5 ft 6.5 in Weight: 295 lb Body Mass Index: 46.9 BMI Classification: Morbidly Obese Impression and Plan IMPRESSION: 1. Obstructive Sleep Apnea-Hypopnea Syndrome, severe with the pa garland doing well on nasal CPAP therapy. She has excellent compliance and significant clinical improvement. The current pressure appears effective and comfortable. Overall, she is very satisfied with treatment and plans to continue with it long-term. Because the residual AHI is very low, I will lower the pressure a little. PLAN: 1. Set CPAP to autoCPAP with pressure range 6 - 10 cmH2O. 2. Try to lose weight 3. Try Respironics DreamWear nasal cushion mask with arms. 4. Return in one year for follow up or earlier if there is any problem with the treatment. Follow up recommended for: Weight management Visit Type: In Office Time Spent with Patient (minutes): 15 Provider Statement: I spent 100% of the Face to Face Visit with the patient with greater than 50% spent counseling the patient and coordination of care.
== END 2020-11-13 13:34 | disposition home or self-care (01) ==
LOC: SC 13:33
PROVIDERS: ATTEND Internal Medicine Pulmonary Disease
DX: G47.33 Obstructive sleep apnea (adult) (pediatric) (principal); E66.01 Morbid (severe) obesity due to excess calories; Z68.42 Body mass index [BMI] 45.0-49.9, adult
CPT/HCPCS: 99213; G0463; 99212

== ENCOUNTER 2021-01-04 14:23 | Outpatient (CLI) | payer MEDICARE, OTHER ==
[2021-01-04 14:49] LABS: CALCIUM 9.5 mg/dL (8.5-10.3); CREATININE 1.1 mg/dL (0.4-1.0); POTASSIUM 4.1 mmol/L (3.5-5.0)
[2021-01-04 15:08] LABS: THYROID STIMULATING HORMONE 5.73 uIU/mL (0.34-5.60)
[2021-01-04 15:11] LABS: FREE T3 2.6 pg/mL (2.5-3.9)
[2021-01-04 15:12] LABS: FREE T4 (FREE THYROXINE) 0.85 ng/dL (0.58-1.64)
== END 2021-01-04 14:24 | disposition home or self-care (01) ==
LOC: LAB 14:23
PROVIDERS: ATTEND Family Medicine
DX: R00.9 Unspecified abnormalities of heart beat (principal); E03.9 Hypothyroidism, unspecified
CPT/HCPCS: 36415; 80048; 84439; 84443; 84481

== ENCOUNTER 2021-04-04 11:15 | Outpatient (CLI) | payer MEDICARE, OTHER ==
[2021-04-04 11:56] LABS: BASOPHILS % (AUTO) 0.5 %; EOSINOPHILS # (AUTO) 0.2 10^3/uL (0.0-0.7); EOSINOPHILS % (AUTO) 2.9 %; HCT - HEMATOCRIT 42.6 % (37.0-47.0); HGB - HEMOGLOBIN 13.6 g/dL (12.0-16.0); LYMPHOCYTES # (AUTO) 1.6 10^3/uL (1.5-3.5); LYMPHOCYTES % (AUTO) 24.9 %; MEAN CORPUSCULAR HEMOGLOBIN 28.3 pg (27.0-31.0); MEAN CORPUSCULAR HGB CONC 31.9 g/dL (32.0-36.0); MEAN CORPUSCULAR VOLUME 88.8 fL (81.0-99.0); MEAN PLATELET VOLUME 11.2 fL (7.9-10.8); MONOCYTES # (AUTO) 0.6 10^3/uL (0.0-1.0); MONOCYTES % (AUTO) 9.8 %; NEUTROPHILS % (AUTO) 61.6 %; PLT - PLATELET COUNT 234 10^3/uL (130-450); RED CELL DISTRIBUTION WIDTH 13.5 % (12.0-15.0); WHITE BLOOD COUNT 6.5 x10^3/uL (4.8-10.8)
[2021-04-04 12:11] LABS: ALBUMIN 4.2 g/dL (3.2-5.5); ALBUMIN/GLOBULIN RATIO 1.3 (1.0-2.2); BILIRUBIN,TOTAL 0.6 mg/dL (0.2-1.0); CALCIUM 9.7 mg/dL (8.5-10.3); POTASSIUM 4.7 mmol/L (3.5-5.0); TOTAL PROTEIN 7.5 g/dL (6.7-8.2)
[2021-04-04 12:29] LABS: THYROID STIMULATING HORMONE 0.55 uIU/mL (0.34-5.60)
[2021-04-04 12:30] LABS: FREE T3 3.61 pg/mL (2.5-3.9)
[2021-04-04 12:31] LABS: FREE T4 (FREE THYROXINE) 1.23 ng/dL (0.58-1.64)
[2021-04-04 13:04] LABS: ESTIMATED AVERAGE GLUCOSE 123 mg/dL (70-100); HEMOGLOBIN A1c% 5.9 % (4.27-6.07)
== END 2021-04-04 11:16 | disposition home or self-care (01) ==
LOC: LAB 11:15
PROVIDERS: ATTEND Family Medicine
DX: I10 Essential (primary) hypertension (principal); M60.9 Myositis, unspecified; R73.03 Prediabetes; E03.9 Hypothyroidism, unspecified; M54.5 Low back pain; G47.33 Obstructive sleep apnea (adult) (pediatric); G62.9 Polyneuropathy, unspecified
CPT/HCPCS: 36415; 80053; 83036; 84153; 84439; 84443; 84481; 85025

== ENCOUNTER 2021-05-08 10:02 | Outpatient (CLI) | payer MEDICARE, OTHER ==
--- NOTE | 2021-05-08 11:05 | CARDIAC PROCEDURE NOTE ---
Stress Test Report Service Date: 05/08/21 Service Time: 10:30 Ordering Provider: Matty Cervantes Indication for Test: Assess exertional dyspnea. Significant Medical History: -Kirsty has a long history of hypertension and obstructive sleep apnea, for which she uses CPAP consistently every night. She was experiencing symptoms of an irregular heartbeat this past winter and underwent evaluation at [facility] under Dr. Multani, that included an echocardiogram and outpatient rhythm monitoring. Her understanding is that the echo results were unremarkable and there were extrasystoles on the rhythm monitoring, that prompted a trial off of HCTZ, with subsequent symptom improvement. -She was also experiencing intermittent lightheadedness that prompted a trial of further decrease in her antihypertensive regimen. Her prior losartan dose of 100 mg was tapered off, however her blood pressure increased unacceptably without a clear improvement in her periodic lightheadedness. Therefore losartan was resumed at 50 mg daily. She reports that her target blood pressure per her PCP (Dr. Cervantes) is 150/90. -She has noticed a gradually progressive increase in exertional dyspnea over several months, that has become quite limiting in recent weeks. She notes that even walking around in the grocery store with her shopping cart requires causes significant increase in dyspnea and the need to stop and rest. When the dyspnea is severe she may experience non-radiating throat tightness, that typically resolves within 1 or 2 minutes of stopping to rest. She denies PND and orthopnea and probably does not have much ankle swelling. Cardiac Risk Factors: Her coronary heart disease risks include hypertension, but are negative for hyperlipidemia, diabetes, ever cigarette smoking and she is not aware of close family members with heart attack or stroke. Type of Stress Test: ETT with Echocardiography Procedure: -Exercise Treadmill Test- After signing informed consent, the patient underwent rest echo imaging. She then performed treadmill exercise using a Modified Jun protocol. The patient exercised for 4 minutes 18 seconds and achieved a peak heart rate of 160 (110 percent predicted maximum heart rate for age), and an estimated workload of 2.85 METS. The test was terminated due to fatigue/shortness of breath. Resting heart rate: 88 Peak heart rate: 160 Normal response to exercise. Resting BP: supine 128/86, standing 198/93 Peak BP: 198/82 Markedly elevated standing BP at rest, with NO further increase in response to exercise (abnormal). Rhythm during exercise: PACs, multiform PVCs, with periods of trigeminy; with occasional PVC couplets, one triplet and a single 6-beat run of ventricular tachycardia. Ventricular ectopy was especially evident in first 2-3 minutes of recovery. Symptoms: Her exertional dyspnea was accompanied by throat tightness at peak exercise, that resolved in the first 2 minutes of recovery. EKG at rest showed normal sinus rhythm with occasional isolated PAC and PVC, with resting ST depression of ~0.5 mm in the inferior and anterolateral leads. EKG at peak stress showed incremental ST depression to >1.0 mm, but in leads with resting depression (non-specific change due to resting abnormality). In Recovery ventricular ectopy increased for ~3 minutes then decreased; BP remained persistently elevated. Echo imaging performed at rest and with stress, will be reported separately. Ti Tejada MD, was present throughout this treadmill stress test and supervised it in its entirety. Summary: 1) Markedly reduced exercise tolerance as evidenced by inability to complete stage 2 of Modified Jun protocol and attainment of only 2.85 METS. 2) Abnormal resting EKG, with resting ST depression. 3) Adequate level of exercise to achieve target heart rate was achieved on this treadmill stress test. 4) Markedly abnormal BP response to assuming standing position from sitting, with abnormal failure to augment BP further with exercise. 5) Incremental ST depression was seen with stress, however, resting ST depression reduces the specificity of this response for ischemia. 6) Marked increase in ventricular ectopy with stress and especially in early recovery. 7) Echo image analysis revealed normal left ventricular size and resting systolic function, with normal range LV ejection fraction. There was appropriate hyperdynamic augmentation of all segments, thus no echo evidence of inducible ischemia. 8) However, resting assessment revealed Doppler evidence of increased estimated right ventricular/pulmonary artery systolic pressure (48 mmHg), with normal right ventricular size and systolic function. See separate echo report for details CONCLUSIONS: 1) Multiple markers of elevated risk, including abbreviated exercise time, no augmentation of blood pressure above markedly elevated standing value, recreation of dyspnea and throat tightness at peak stress and marked increase in ventricular ectopy (especially evident in early recovery). 2) Echo image analysis does not support inducible left ventricular ischemia as etiologic, however resting pulmonary hypertension is significant and should be further evaluated with a full resting diagnostic echocardiogram, and consideration of formal cardiology evaluation.
== END 2021-05-08 10:03 | disposition home or self-care (01) ==
LOC: DI 10:02
PROVIDERS: ATTEND Family Medicine
DX: R06.09 Other forms of dyspnea (principal); I27.20 Pulmonary hypertension, unspecified; I10 Essential (primary) hypertension
CPT/HCPCS: 93350

== ENCOUNTER 2021-05-08 12:03 | Outpatient (CLI) | payer MEDICARE, OTHER ==
--- NOTE | 2021-05-08 16:10 | XRAY Report ---
PROCEDURE: Chest 2 View X-Ray INDICATIONS: BREATHLESS,MODERATE EXERTION, EXERTIONAL DYSPNEA TECHNIQUE: 2 view(s) of the chest. COMPARISON: Chest x-ray 11/15/2018 FINDINGS: Surgical changes and devices: None. Lungs and pleura: No pleural effusions or pneumothorax. Lungs are clear. Mediastinum: Mediastinal contours are normal. Heart size is mildly prominent. Bones and chest wall: No suspicious bony abnormalities. Soft tissues appear unremarkable. IMPRESSION: No acute pulmonary process. Reviewed by: Maegan Ochoa MD on 05/08/2021 4:08 PM PDT Approved by: Maegan Ochoa MD on 05/08/2021 4:08 PM PDT Station ID: [id number]
== END 2021-05-08 12:04 | disposition home or self-care (01) ==
LOC: DI 12:03
PROVIDERS: ATTEND Family Medicine
DX: R06.09 Other forms of dyspnea (principal); I27.20 Pulmonary hypertension, unspecified; I10 Essential (primary) hypertension
CPT/HCPCS: 93350

== ENCOUNTER 2021-05-11 09:13 | Outpatient (CLI) | payer MEDICARE, OTHER ==
--- NOTE | 2021-05-14 10:18 | Mammography Report ---
BILATERAL DIGITAL SCREENING MAMMOGRAM 3D/2D: 05/11/2021 CLINICAL: Routine screening. Comparison is made to exams dated: 04/20/2020 mammogram, 12/21/2018 mammogram, 12/04/2017 mammogram, 06/2017 mammogram, 12/05/2015 mammogram, and 11/29/2014 mammogram - [facility]. The t issue of both breasts is heterogeneously dense. This may lower the sensitivity of mammography. No significant masses, calcifications, or other findings are seen in either breast. There has been no significant interval change. IMPRESSION: NEGATIVE There is no mammographic evidence of malignancy. A 1 year screening mammogram is recommended. This exam was interpreted at Station ID: [id number]. NOTE: For mammograms, a report in lay terms will be sent to the patient. Approximately 15% of breast malignancies will not be visualized mammographically. In the management of a palpable breast mass, a negative mammogram must not discourage biopsy of a clinically suspicious lesion. Electronically Signed By: Devin Sousa M.D., jr/ted:05/11/2021 11:15:35 ACR BI-RADS Category 1: Negative 3341F PARENCHYMAL PATTERN: (D) - The breast(s) demonstrate(s) heterogeneously dense fibroglandular bharathi brian. BI-RADS CATEGORY: (1) - 1 RECOMMENDATION: (ANNUAL) - Recommend routine annual screening mammography. [id number] 1 year screening LATERALITY: (B)
== END 2021-05-11 09:14 | disposition home or self-care (01) ==
LOC: DI 09:13
PROVIDERS: ATTEND Family Medicine
DX: Z12.31 Encounter for screening mammogram for malignant neoplasm of breast (principal)

== ENCOUNTER 2021-07-13 12:54 | Day surgery (SDC) | payer MEDICARE, OTHER ==
[2021-07-13] MEDS ORDERED: LACTATED RINGERS 1,000 ML IV ONE ×2 (13:29→15:20)
--- NOTE | 2021-07-13 14:00 | ANESTHESIA ---
Pre-Anesthesia VS, & Labs - Diagnosis hx of colon polyps - Procedure colonoscopy w/biopsies Vital Signs: Temp Pulse Resp BP Pulse Ox 37.2 C 80 20 188/96 H 99 07/13/21 13:20 07/13/21 13:20 07/13/21 13:20 07/13/21 13:20 07/13/21 13:20 Height: 5 ft 7 in Weight (kg): 137 kg Body Mass Index: 47.2 BMI Classification: Morbidly Obese - NPO >8 hours - Is Patient ?: No - Lab Results Lab results reviewed: Yes Home Medications and Allergies Home Medications: Ambulatory Orders Liothyronine [Cytomel] 10 mcg PO QDAC 07/12/21 Gabapentin 300 mg PO BID 11/27/16 Levothyroxine Sodium [Levoxyl] 200 mcg PO DAILY 11/27/16 Lidocaine Patch 5% [Lidoderm Patch] 5 ea TD PRN PRN 11/27/16 Losartan Potassium [Cozaar] 50 mg PO DAILY 11/27/16 Omeprazole 20 mg PO DAILY 11/15/18 Liothyronine [Cytomel] 10 mcg PO QDAC 07/12/21 Allergies/Adverse Reactions: Allergies Allergy/AdvReac Type Severity Reaction Status Date / Time pollen extracts Allergy Respiratory Verified 07/12/21 13:34 Sulfa (Sulfonamide Allergy Hives Verified 05/03/19 22:33 Antibiotics) amoxicillin [From Augmentin] AdvReac Unknown Verified 07/13/21 13:25 baclofen AdvReac Unknown Verified 07/13/21 13:25 clavulanic acid AdvReac Unknown Verified 07/13/21 13:25 [From Augmentin] cyclobenzaprine AdvReac Unknown Verified 07/13/21 13:25 [From Flexeril] hydroxyzine AdvReac Unknown Verified 07/13/21 13:25 levofloxacin [From Levaquin] AdvReac Unknown Verified 07/13/21 13:25 tape Allergy Rash Uncoded 07/13/21 13:25 Anes History & Medical History - Anesthetic History Anesthesia Complications: reports: No previous complications Family history of Anesthesia Complications: Denies Family history of Malignant Hyperthermia: Denies - Medical History Cardiovascular: reports: Hypertension Pulmonary: reports: Sleep apnea, CPAP use Gastrointestinal: reports: GERD, Hiatal hernia, Colon polyps Urinary: reports: Incontinence Neuro: reports: None Musculoskeletal: reports: Osteoarthritis, Fibromyalgia, Chronic back pain Endocrine/Autoimmune: reports: HyPOthyroidism Blood Disorders: reports: None Skin: reports: Eczema Smoking Status: Never smoker - Surgical History General: reports: Gastric surgery Gynecologic: reports: section Orthopedic: reports: Spine surgery Exam General: Alert, Oriented x3, Cooperative Dental: Dentures full Upper, Dentures full Lower Mouth Opening: Greater than 4 Fingerbreadths Neck Mobility: Normal Mallampati classification: I Thyromental Distance: 4-6 cm Respiratory: Lungs clear, Normal breath sounds, No respiratory distress Cardiovascular: Regular rate Neurological: Normal speech Mental/Cognitive Status: Alert/Oriented X3, Normal for patient Cognitive Status: Within normal limits Plan Anesthesia Type: Total IV Consent for Procedure(s) Verified and Reviewed: Yes Code Status: Attempt Resuscitation ASA classification: 3-Severe systemic disease Is this case an emergency?: No
[2021-07-13] MEDS ORDERED: PROPOFOL 500 MG/50 ML 500 MG/50 ML VIAL ONE (14:45)
[2021-07-13] MEDS ORDERED: LIDOCAINE-PF 2% 10 ML AMP SUBQ ONE (14:45)
[2021-07-13 15:30] VITALS: BP 183/77
--- NOTE | 2021-07-13 16:37 | ANESTHESIA POST OP EVALUATION ---
Anesthesia Post Eval - Post Anesthesia Eval Vitals: Last Vital Signs Temp 36.8 C 07/13/21 15:20 Pulse 85 07/13/21 15:29 Resp 20 07/13/21 15:29 BP 183/77 H 07/13/21 15:29 Pulse Ox 99 07/13/21 15:29 CV Function Including HR & BP: Stable Pain Control: Satisfactory Nausea & Vomiting: Negative Mental Status: Baseline Respiratory Status: Airway Patent Hydration Status: Satisfactory Anesthesia Complications: None
== END 2021-07-13 12:55 | disposition home or self-care (01) ==
LOC: SDS 12:54
PROVIDERS: ATTEND Surgery
PROC: 0DBK8ZZ Excision of Ascending Colon, Via Natural or Artificial Opening Endoscopic (ICD-10-PCS; principal; 2021-07-13 14:15)
DX: Z12.11 Encounter for screening for malignant neoplasm of colon (principal); D12.2 Benign neoplasm of ascending colon; K57.30 Diverticulosis of large intestine without perforation or abscess without bleeding; E66.01 Morbid (severe) obesity due to excess calories; Z68.42 Body mass index [BMI] 45.0-49.9, adult; G47.30 Sleep apnea, unspecified
CPT/HCPCS: 45385; J7120

== ENCOUNTER 2021-07-18 11:14 | Outpatient (CLI) | payer MEDICARE, OTHER ==
[2021-07-18 11:57] LABS: BASOPHILS # (AUTO) 0.1 10^3/uL (0.0-0.1); BASOPHILS % (AUTO) 0.9 %; EOSINOPHILS # (AUTO) 0.3 10^3/uL (0.0-0.7); EOSINOPHILS % (AUTO) 4.1 %; HCT - HEMATOCRIT 43.2 % (37.0-47.0); HGB - HEMOGLOBIN 13.8 g/dL (12.0-16.0); LYMPHOCYTES # (AUTO) 1.7 10^3/uL (1.5-3.5); LYMPHOCYTES % (AUTO) 27.3 %; MEAN CORPUSCULAR HEMOGLOBIN 28.9 pg (27.0-31.0); MEAN CORPUSCULAR HGB CONC 31.9 g/dL (32.0-36.0); MEAN CORPUSCULAR VOLUME 90.6 fL (81.0-99.0); MEAN PLATELET VOLUME 11.1 fL (7.9-10.8); MONOCYTES # (AUTO) 0.7 10^3/uL (0.0-1.0); MONOCYTES % (AUTO) 10.4 %; NEUTROPHILS # (AUTO) 3.6 10^3/uL (1.5-6.6); NEUTROPHILS % (AUTO) 57.1 %; PLT - PLATELET COUNT 254 10^3/uL (130-450); RED BLOOD COUNT 4.77 10^6/uL (4.20-5.40); RED CELL DISTRIBUTION WIDTH 14.1 % (12.0-15.0); WHITE BLOOD COUNT 6.4 x10^3/uL (4.8-10.8)
[2021-07-18 12:23] LABS: ALBUMIN 3.9 g/dL (3.2-5.5); ALBUMIN/GLOBULIN RATIO 1.1 (1.0-2.2); BILIRUBIN,TOTAL 0.5 mg/dL (0.2-1.0); CALCIUM 9.7 mg/dL (8.5-10.3); CREATININE 1.1 mg/dL (0.4-1.0); POTASSIUM 4.7 mmol/L (3.5-5.0); TOTAL PROTEIN 7.6 g/dL (6.7-8.2)
[2021-07-18 12:29] LABS: THYROID STIMULATING HORMONE 1.44 uIU/mL (0.34-5.60)
[2021-07-18 12:30] LABS: FREE T3 3.96 pg/mL (2.5-3.9)
[2021-07-18 12:31] LABS: FREE T4 (FREE THYROXINE) 1.05 ng/dL (0.58-1.64)
[2021-07-18 13:00] LABS: ESTIMATED AVERAGE GLUCOSE 123 mg/dL (70-100); HEMOGLOBIN A1c% 5.9 % (4.27-6.07)
== END 2021-07-18 11:15 | disposition home or self-care (01) ==
LOC: LAB 11:14
PROVIDERS: ATTEND Family Medicine
DX: M60.9 Myositis, unspecified (principal); R73.03 Prediabetes; E03.9 Hypothyroidism, unspecified; G47.33 Obstructive sleep apnea (adult) (pediatric); G62.9 Polyneuropathy, unspecified; I10 Essential (primary) hypertension; M54.50 Low back pain, unspecified
CPT/HCPCS: 36415; 80053; 83036; 84153; 84439; 84443; 84481; 85025

== ENCOUNTER 2022-01-15 09:41 | Outpatient (CLI) | payer MEDICARE, OTHER ==
[2022-01-15 09:55] LABS: BASOPHILS # (AUTO) 0.1 10^3/uL (0.0-0.1); EOSINOPHILS # (AUTO) 0.2 10^3/uL (0.0-0.7); EOSINOPHILS % (AUTO) 3.5 %; HCT - HEMATOCRIT 44.3 % (37.0-47.0); HGB - HEMOGLOBIN 14.2 g/dL (12.0-16.0); LYMPHOCYTES % (AUTO) 33.8 %; MEAN CORPUSCULAR HEMOGLOBIN 28.9 pg (27.0-31.0); MEAN CORPUSCULAR HGB CONC 32.1 g/dL (32.0-36.0); MEAN CORPUSCULAR VOLUME 90.2 fL (81.0-99.0); MEAN PLATELET VOLUME 10.9 fL (7.9-10.8); MONOCYTES # (AUTO) 0.6 10^3/uL (0.0-1.0); MONOCYTES % (AUTO) 9.2 %; NEUTROPHILS # (AUTO) 3.1 10^3/uL (1.5-6.6); NEUTROPHILS % (AUTO) 52.3 %; PLT - PLATELET COUNT 299 10^3/uL (130-450); RED BLOOD COUNT 4.91 10^6/uL (4.20-5.40); RED CELL DISTRIBUTION WIDTH 14.4 % (12.0-15.0)
[2022-01-15 10:15] LABS: ALBUMIN 4.1 g/dL (3.2-5.5); ALBUMIN/GLOBULIN RATIO 1.1 (1.0-2.2); ALKALINE PHOSPHATASE 72 IU/L (42-121); ALT ALANINE AMINOTRANSFERASE 20 IU/L (10-60); AST ASPARTATE AMINOTRANSFERASE 25 IU/L (10-42); BILIRUBIN,TOTAL 0.6 mg/dL (0.2-1.0); BUN - BLOOD UREA NITROGEN 15 mg/dL (6-20); CALCIUM 9.8 mg/dL (8.5-10.3); CARBON DIOXIDE - CO2 24 mmol/L (21-32); CHLORIDE 107 mmol/L (101-111); CHOL/HDL RATIO 4.1 (<4.4); CHOLESTEROL 235 mg/dL; CREATININE 1.1 mg/dL (0.4-1.0); GFR - MDRD 48 (>89); GLUCOSE 103 mg/dL (70-100); HDL CHOLESTEROL 58 mg/dL; LDL CHOLESTEROL,CALCULATED 150 mg/dL; LDL/HDL RATIO 2.6 (<4.4); POTASSIUM 4.6 mmol/L (3.5-5.0); SODIUM 141 mmol/L (135-145); TRIGLYCERIDES 133 mg/dL; VLDL CHOLESTEROL 27 mg/dL
[2022-01-15 10:26] LABS: THYROID STIMULATING HORMONE 4.1 uIU/mL (0.34-5.60)
[2022-01-15 10:28] LABS: FREE T3 3.37 pg/mL (2.5-3.9)
[2022-01-15 10:29] LABS: FREE T4 (FREE THYROXINE) 1.08 ng/dL (0.58-1.64)
[2022-01-15 12:36] LABS: ESTIMATED AVERAGE GLUCOSE 126 mg/dL (70-100)
== END 2022-01-15 09:42 | disposition home or self-care (01) ==
LOC: LAB 09:41
PROVIDERS: ATTEND Family Medicine
DX: I27.20 Pulmonary hypertension, unspecified (principal); E11.9 Type 2 diabetes mellitus without complications; E66.01 Morbid (severe) obesity due to excess calories; R06.09 Other forms of dyspnea; Z96.653 Presence of artificial knee joint, bilateral; M79.605 Pain in left leg; M19.90 Unspecified osteoarthritis, unspecified site; I10 Essential (primary) hypertension
CPT/HCPCS: 36415; 80053; 80061; 83036; 83721; 84439; 84443; 84481; 85025

== ENCOUNTER 2022-03-25 14:06 | Outpatient (CLI) | payer MEDICARE, OTHER ==
[2022-03-25 15:33] VITALS: BP 122/78
--- NOTE | 2022-03-25 15:33 | SLEEP CARE CONSULTATION ---
Information from patient questionnaire entered by Kit King MA. I have reviewed and concur with the information entered by Kit King MA. This document represents the service I personally performed and the decisions made by me, Scott Sauceda MD, [facility]. History of Present Illness Service Date and Time: 03/25/2022 1406 Previous diagnosis: Severe, Obstructive Sleep Apnea-Hypopnea Syndrome AHI: 40.5 Reason for follow up: annual (LAST SEEN 10/2020, ALLEN, WOLFE 05/04/2019, ) Equipment type: CPAP Equipment obtained from: [employer] Mask style: Nasal pillows Year and Where: 2012 [facility] [place] HPI additional information: Ms. Wallace returned today for follow up of nasal CPAP therapy. She was diagnosed to have severe obstructive sleep apnea-hypopnea syndrome. The patient went to [facility] in [place] for the equipment and was fitted with the Respironics nasal pillows. She reports using the device nightly and all through the night. The compliance report shows usage in 363 nights out of the past 365 nights, averaging 8.1 hours a night. She complained of no particular problem with the device such as soreness on the face, dry nose, epistaxis, nasal congestion or headache. She thinks that the pressure of 6 - 10 cmH2O is comfortable. On the CPAP therapy she notices improvement in her sleep quality, and that she wakes up feeling fresher in the morning and more awake/alert during the day. The [place] Sleepiness Scale score 6. Her notices no snore at all. The average residual AHI is 1.5; and average time in large leak per day is 2 minutes. Her machine is actually not part of the recall (we entered the serial number into [facility] website). Sleep Study - Results Year and Where: 2012 [facility] CPAP Compliance Data - Data Reviewed with Patient Average duration of nightly device use: 7 HOURS 49 MINUTES Compliance rate %: 97.8 (12/21/2021-03/20/2022) Current pressure setting (cmH2O): 6-10 Humidity settin Heated hose settin Average residual AHI: 1.3 Average large leak: 2 MINUTES 57 SECONDS Subjective Initial [place] Sleepiness Scale score: 7 (in 2012) Current [place] Sleepiness Scale score: 6 (03/25/2022) Allergies and Home Medications Drug allergies reviewed: Yes Home medication list reviewed: Yes Allergy and home medication list: Allergies pollen extracts Allergy (Verified 07/12/21 13:34) Respiratory Sulfa (Sulfonamide Antibiotics) Allergy (Verified 05/03/19 22:33) Hives amoxicillin [From Augmentin] Adverse Reaction (Verified 07/13/21 13:25) Unknown baclofen Adverse Reaction (Verified 07/13/21 13:25) Unknown clavulanic acid [From Augmentin] Adverse Reaction (Verified 07/13/21 13:25) Unknown cyclobenzaprine [From Flexeril] Adverse Reaction (Verified 07/13/21 13:25) Unknown hydroxyzine Adverse Reaction (Verified 07/13/21 13:25) Unknown levofloxacin [From Levaquin] Adverse Reaction (Verified 07/13/21 13:25) Unknown tape Allergy (Uncoded 07/13/21 13:25) Rash paper tape NEW MED VERAPAMIL 240mg QD PM Review of Systems Review of systems same as previous: Yes Physical Exam Vital signs obtained and entered by: Vanesa KING CMA AACHRISTINE Blood Pressure: 122/78 (RESP 18, PULSE 68, LEFT) Cuff size: wrist Heart Rate: 68 O2 Saturation: 97 Height: 5 ft 7 in Weight: 301 lb (CLOTHES) Weight change since last visit: MAINTAIN Body Mass Index: 47.1 BMI Classification: Morbidly Obese Impression and Plan IMPRESSION: 1. Obstructive Sleep Apnea-Hypopnea Syndrome, severe with the patient doing well on nasal CPAP therapy. She has excellent compliance and significant clinical improvement. The current pressure appears effective and comfortable. Overall, she is very satisfied with treatment and plans to continue with it long-term. No adjustment is necessary today. PLAN: 1. Continue with autoCPAP set at 6 - 10 cmH2O. 2. Try to lose weight 3. Return in one year for follow up or earlier if there is any problem with the treatment. Follow up with Sleep Care in: 1 year Visit Type: In Office Time Spent with Patient (minutes): 20 Provider Statement: I spent 100% of the Face to Face Visit with the patient with greater than 50% spent counseling the patient and coordination of care.
== END 2022-03-25 14:07 | disposition home or self-care (01) ==
LOC: SC 14:06
PROVIDERS: ATTEND Internal Medicine Pulmonary Disease
DX: G47.33 Obstructive sleep apnea (adult) (pediatric) (principal); E66.01 Morbid (severe) obesity due to excess calories; Z68.42 Body mass index [BMI] 45.0-49.9, adult
CPT/HCPCS: 99213; G0463; 99212

== ENCOUNTER 2022-06-24 15:10 | Outpatient (CLI) | payer MEDICARE, OTHER ==
[2022-06-24 15:36] LABS: HCT - HEMATOCRIT 44.9 % (37.0-47.0); HGB - HEMOGLOBIN 14.2 g/dL (12.0-16.0); MEAN CORPUSCULAR HEMOGLOBIN 28.8 pg (27.0-31.0); MEAN CORPUSCULAR HGB CONC 31.6 g/dL (32.0-36.0); MEAN CORPUSCULAR VOLUME 91.1 fL (81.0-99.0); MEAN PLATELET VOLUME 11.5 fL (7.9-10.8); RED BLOOD COUNT 4.93 10^6/uL (4.20-5.40); RED CELL DISTRIBUTION WIDTH 14.2 % (12.0-15.0)
[2022-06-24 15:40] LABS: ALBUMIN 4.1 g/dL (3.2-5.5); ALBUMIN/GLOBULIN RATIO 1.1 (1.0-2.2); BILIRUBIN,TOTAL 0.5 mg/dL (0.2-1.0); CREATININE 1.2 mg/dL (0.4-1.0); POTASSIUM 4.3 mmol/L (3.5-5.0); TOTAL PROTEIN 7.9 g/dL (6.7-8.2)
[2022-06-24 15:57] LABS: THYROID STIMULATING HORMONE 8.57 uIU/mL (0.34-5.60)
[2022-06-24 15:59] LABS: FREE T3 2.94 pg/mL (2.5-3.9); FREE T4 (FREE THYROXINE) 0.84 ng/dL (0.58-1.64)
== END 2022-06-24 15:11 | disposition home or self-care (01) ==
LOC: LAB 15:10
PROVIDERS: ATTEND Nurse Practitioner
DX: I10 Essential (primary) hypertension (principal); I49.3 Ventricular premature depolarization; E03.9 Hypothyroidism, unspecified
CPT/HCPCS: 36415; 80053; 83735; 84439; 84443; 84481; 85027

== ENCOUNTER 2022-07-06 15:41 | Emergency (ER) | payer MEDICARE, OTHER ==
[2022-07-06 16:02] VITALS: BP 162/82
[2022-07-06] MEDS ORDERED: guaiFENesin/CODEINE 5 ML UDC PO STA (16:24)
[2022-07-06] MEDS ORDERED: DOXYCYCLINE 100 MG TABLET PO STA (16:24)
[2022-07-06] MEDS ORDERED: ALBUTEROL NEB 2.5 MG/3 ML INH STA (16:25)
--- NOTE | 2022-07-06 16:26 | ED Physician Documentation ---
PD HPI HEENT - Stated complaint Stated Complaint: COUGH - Chief complaint Chief Complaint: Resp - History obtained from History obtained from: Patient - Additional information Additional information: Cough productive of yellow sputum for a week with severe coughing fits and shortness of breath. No history of pulmonary disease. No fevers. Review of Systems Constitutional: denies: Fever, Chills Nose: denies: Rhinorrhea / runny nose Respiratory: reports: Dyspnea, Cough, Wheezing PD PAST MEDICAL HISTORY - Past Medical History Cardiovascular: Hypertension Respiratory: Sleep apnea, CPAP use Neuro: None Endocrine/Autoimmune: HyPOthyroidism GI: GERD, Hiatal hernia, Colon polyps ANTENNA ENGINEER: Other : Incontinence HEENT: Other Psych: None Musculoskeletal: Osteoarthritis, Fibromyalgia, Chronic back pain Derm: Eczema - Past Surgical History Past Surgical History: Yes General: Gastric surgery Ortho: Spine surgery /ANTENNA ENGINEER: section - Present Medications Home Medications: Ambulatory Orders Medication Instructions Recorded Confirmed Gabapentin 300 mg PO BID 11/27/16 07/13/21 Levothyroxine Sodium [Levoxyl] 200 mcg PO DAILY 11/27/16 07/13/21 Lidocaine Patch 5% [Lidoderm Patch] 5 ea TD PRN PRN 11/27/16 07/12/21 Losartan Potassium [Cozaar] 50 mg PO DAILY 11/27/16 07/13/21 Omeprazole 20 mg PO DAILY 11/15/18 07/12/21 Liothyronine [Cytomel] 10 mcg PO QDAC 07/12/21 07/12/21 Albuterol Sulf [Ventolin Hfa 1 - 2 puffs INH Q4HR PRN #1 each 07/06/22 Inhaler] Doxycycline Hyclate 100 mg PO BID #14 cap 07/06/22 Furosemide [Lasix] 20 mg PO DAILY 07/06/22 07/06/22 Verapamil HCl [Verapamil ER] 240 mg PO DAILY 07/06/22 07/06/22 guaiFENesin/CODEINE [Robitussin AC] 5 - 10 ml PO Q6H PRN #120 ml 07/06/22 - Allergies Allergies/Adverse Reactions: Allergies Allergy/AdvReac Type Severity Reaction Status Date / Time pollen extracts Allergy Respiratory Verified 07/06/22 15:52 Sulfa (Sulfonamide Allergy Hives Verified 07/06/22 15:52 Antibiotics) amoxicillin [From Augmentin] AdvReac Unknown Verified 07/06/22 15:52 baclofen AdvReac Unknown Verified 07/06/22 15:52 clavulanic acid AdvReac Unknown Verified 07/06/22 15:52 [From Augmentin] cyclobenzaprine AdvReac Unknown Verified 07/06/22 15:52 [From Flexeril] hydroxyzine AdvReac Unknown Verified 07/06/22 15:52 levofloxacin [From Levaquin] AdvReac Unknown Verified 07/06/22 15:52 tape Allergy Rash Uncoded 07/06/22 15:52 - Social History Does the pt smoke?: No Smoking Status: Never smoker Does the pt drink ETOH?: No Does the pt have substance abuse?: No - Immunizations Immunizations are current?: Yes - POLST Patient has POLST: No PD ED PE NORMAL - Vitals Vital signs reviewed: Yes - General General: Alert and oriented X 3, No acute distress - HEENT HEENT: Pharynx benign - Cardiac Cardiac: RRR, No murmur - Respiratory Respiratory: No respiratory distress, Other (mild exp wheezes with bibasilar rhonchi.) - Abdomen Abdomen: Non tender - Neuro Neuro: Alert and oriented X 3, Normal speech Results - Vitals Vitals: Vital Signs - 24 hr 07/06/22 15:48 Temperature 36.6 C Heart Rate 83 Respiratory 16 Rate Blood Pressure 162/82 H O2 Saturation 98 Oxygen O2 Source Room air Departure - Departure Disposition: 01 Home, Self Care Clinical Impression: Bronchitis Condition: Good Record reviewed to determine appropriate education?: Yes Instructions: ED Bronchitis Asthmatic Prescriptions: Albuterol Sulf [Ventolin Hfa Inhaler] 1 - 2 puffs INH Q4HR PRN #1 each PRN Reason: Shortness Of Air/Wheezing Doxycycline Hyclate 100 mg PO BID #14 cap guaiFENesin/CODEINE [Robitussin AC] 5 - 10 ml PO Q6H PRN #120 ml PRN Reason: Cough Comments: I sent your prescriptions electronically to [facility] in [place]. As discussed it seems that she likely have bronchitis based on your pulmonary examination and symptoms. Follow-up with your doctor middle of next week if not improved, return for new or worsening symptoms. Do not drink or drive while taking prescription cough syrup.
== END 2022-07-06 17:16 | disposition home or self-care (01) ==
LOC: ED 15:41
DX: J40 Bronchitis, not specified as acute or chronic (principal)
CPT/HCPCS: 94640; 99282; 99283; A9270

== ENCOUNTER 2022-07-16 09:37 | Outpatient (CLI) | payer MEDICARE, OTHER ==
[2022-07-16 09:57] LABS: BASOPHILS % (AUTO) 0.6 %; EOSINOPHILS # (AUTO) 0.3 10^3/uL (0.0-0.7); EOSINOPHILS % (AUTO) 4.9 %; HCT - HEMATOCRIT 41.8 % (37.0-47.0); HGB - HEMOGLOBIN 13.2 g/dL (12.0-16.0); LYMPHOCYTES # (AUTO) 2.5 10^3/uL (1.5-3.5); LYMPHOCYTES % (AUTO) 36.8 %; MEAN CORPUSCULAR HEMOGLOBIN 28.5 pg (27.0-31.0); MEAN CORPUSCULAR HGB CONC 31.6 g/dL (32.0-36.0); MEAN CORPUSCULAR VOLUME 90.3 fL (81.0-99.0); MEAN PLATELET VOLUME 10.8 fL (7.9-10.8); MONOCYTES # (AUTO) 0.6 10^3/uL (0.0-1.0); MONOCYTES % (AUTO) 8.2 %; NEUTROPHILS # (AUTO) 3.3 10^3/uL (1.5-6.6); NEUTROPHILS % (AUTO) 49.2 %; PLT - PLATELET COUNT 268 10^3/uL (130-450); RED BLOOD COUNT 4.63 10^6/uL (4.20-5.40); RED CELL DISTRIBUTION WIDTH 14.2 % (12.0-15.0); WHITE BLOOD COUNT 6.7 x10^3/uL (4.8-10.8)
[2022-07-16 10:18] LABS: ALBUMIN 3.8 g/dL (3.2-5.5); ALBUMIN/GLOBULIN RATIO 1.1 (1.0-2.2); ALKALINE PHOSPHATASE 83 IU/L (42-121); ALT ALANINE AMINOTRANSFERASE 18 IU/L (10-60); AST ASPARTATE AMINOTRANSFERASE 21 IU/L (10-42); BILIRUBIN,TOTAL 0.6 mg/dL (0.2-1.0); BUN - BLOOD UREA NITROGEN 14 mg/dL (6-20); CALCIUM 9.4 mg/dL (8.5-10.3); CARBON DIOXIDE - CO2 27 mmol/L (21-32); CHLORIDE 105 mmol/L (101-111); CHOL/HDL RATIO 4.1 (<4.4); CHOLESTEROL 200 mg/dL; CREATININE 1.1 mg/dL (0.4-1.0); GFR - MDRD 48 (>89); GLUCOSE 114 mg/dL (70-100); HDL CHOLESTEROL 49 mg/dL; LDL CHOLESTEROL,CALCULATED 121 mg/dL; LDL/HDL RATIO 2.5 (<4.4); POTASSIUM 4.2 mmol/L (3.5-5.0); SODIUM 142 mmol/L (135-145); TOTAL PROTEIN 7.3 g/dL (6.7-8.2); TRIGLYCERIDES 152 mg/dL; VLDL CHOLESTEROL 30 mg/dL
[2022-07-16 10:28] LABS: THYROID STIMULATING HORMONE 1.55 uIU/mL (0.34-5.60)
[2022-07-16 10:30] LABS: FREE T3 3.07 pg/mL (2.5-3.9); FREE T4 (FREE THYROXINE) 1.04 ng/dL (0.58-1.64)
[2022-07-16 10:37] LABS: ESTIMATED AVERAGE GLUCOSE 126 mg/dL (70-100)
== END 2022-07-16 09:38 | disposition home or self-care (01) ==
LOC: LAB 09:37
PROVIDERS: ATTEND Family Medicine
DX: K59.03 Drug induced constipation (principal); R42 Dizziness and giddiness; I49.9 Cardiac arrhythmia, unspecified; R06.09 Other forms of dyspnea; I27.20 Pulmonary hypertension, unspecified; E11.9 Type 2 diabetes mellitus without complications; E66.01 Morbid (severe) obesity due to excess calories; E03.9 Hypothyroidism, unspecified; Z96.653 Presence of artificial knee joint, bilateral
CPT/HCPCS: 36415; 80053; 80061; 83036; 83721; 84439; 84443; 84481; 85025

== ENCOUNTER 2022-09-16 10:21 | Outpatient (CLI) | payer MEDICARE, OTHER ==
--- NOTE | 2022-09-17 15:36 | Mammography Report ---
BILATERAL DIGITAL SCREENING MAMMOGRAM 3D/2D: 09/16/2022 CLINICAL: Routine screening. Comparison is made to exams dated: 05/11/2021 mammogram, 04/20/2020 mammogram, 12/21/2018 mammogram, 07/2018 mammogram, 12/03/2016 mammogram, and 12/05/2015 mammogram - [facility]. Both breasts are heterogeneously dense, which may obscure small masses (category c / 51-75% glandular tissue). There is a possible developing an irregular equal density asymmetry with possible faint grouped heter ogeneous calcifications in the left breast posterior depth central to the nipple seen on the mediolat eral oblique view only. No other significant masses, calcifications, or other findings are seen in either breast. IMPRESSION: INCOMPLETE: NEEDS ADDITIONAL IMAGING EVALUATION The possible developing irregular equal density asymmetry in the left breast is indeterminate. Addit ional views with possible ultrasound are recommended. Based on the Tyrer Cuzick model (a risk assessment model) the patients lifetime risk is 14.1% and he r 10 year risk is 0.0%. According to the ACR, ACS, and NCCN guidelines, an annual breast MRI exam erich ng with mammogram is recommended if the patients lifetime risk is 20% or greater. This exam was interpreted at Station ID: [id number]. NOTE: For mammograms, a report in lay terms will be sent to the patient. Approximately 15% of breast malignancies will not be visualized mammographically. In the management of a palpable breast mass, a negative mammogram must not discourage biopsy of a clinically suspicious lesion. Electronically Signed By: Manuel Love M.D. aty/:09/16/2022 14:07:54 ACR BI-RADS Category 0: Incomplete 3340F PARENCHYMAL PATTERN: (D) - The breast(s) demonstrate(s) heterogeneously dense fibroglandular parenchy ma. BI-RADS CATEGORY: (0) - 0 Mammo and [place] [id number] Immediate follow-up LATERALITY: (L)
== END 2022-09-16 10:22 | disposition home or self-care (01) ==
LOC: DI 10:21
DX: Z12.31 Encounter for screening mammogram for malignant neoplasm of breast (principal)

== ENCOUNTER 2022-10-07 10:17 | Outpatient (CLI) | payer MEDICARE, OTHER ==
--- NOTE | 2022-10-08 12:42 | Mammography Report ---
UNILATERAL LEFT DIGITAL DIAGNOSTIC MAMMOGRAM 3D/2D: 10/07/2022 CLINICAL: Patient returns today to evaluate an asymmetry in the left breast. Comparison is made to exams dated: 09/16/2022 mammogram, 05/11/2021 mammogram, 04/20/2020 mammogram, mammogram, and 12/04/2017 mammogram - [facility]. The left breast is heterogeneously dense, which may obscure small masses (category c / 51-75% glandul ar tissue). There is an asymmetry in the left breast posterior depth central to the nipple seen on the mediolater al oblique view only. No other significant masses or calcifications are seen in the breast. IMPRESSION: INCOMPLETE: NEEDS ADDITIONAL IMAGING EVALUATION The asymmetry in the left breast resembles fibroglandular tissue and is indeterminate. A targeted ultrasound is recommended and will immediately follow. Based on the Tyrer Cuzick model (a risk assessment model) the patients lifetime risk is 14.1% and he r 10 year risk is 0.0%. According to the ACR, ACS, and NCCN guidelines, an annual breast MRI exam erich ng with mammogram is recommended if the patients lifetime risk is 20% or greater. This exam was interpreted at Station ID: [id number]. NOTE: For mammograms, a report in lay terms will be sent to the patient. Approximately 15% of breast malignancies will not be visualized mammographically. In the management of a palpable breast mass, a negative mammogram must not discourage biopsy of a clinically suspicious lesion. Electronically Signed By: Junaid Castillo M.D. slc/:10/07/2022 11:01:14 ACR BI-RADS Category 0: Incomplete 3340F PARENCHYMAL PATTERN: (D) - The breast(s) demonstrate(s) heterogeneously dense fibroglandular parramony ma. BI-RADS CATEGORY: (0) - 0 Ultrasound [id number] Immediate follow-up LATERALITY: (B)
--- NOTE | 2022-10-08 12:42 | Ultrasound Report ---
LIMITED ULTRASOUND OF LEFT BREAST AND AXILLA: 10/07/2022 CLINICAL: Patient returns today to evaluate a focal asymmetry in the left breast. Comparison is made to exams dated: 10/07/2022 mammogram, 09/16/2022 mammogram, 05/11/2021 mammogram, mammogram, 12/21/2018 mammogram, and 12/04/2017 mammogram - [facility]. Color flow and real-time ultrasound of the left breast 12-1 o'clock and 3 o'clock regions were perfor med. Castillo scale images of the real-time examination were reviewed. There is a 1.3 cm x 1.2 cm x 0.9 cm taller than wide mass with an indistinct margin in the left breas t at 3 o'clock posterior depth 7 cm from the nipple. This mass is hypoechoic. This correlates as an incidental finding. Color flow imaging demonstrates that there is an adjacent vascularity. No mass seen at 12:00 or 1:00 regions. No enlarged axillary lymph nodes. IMPRESSION: SUSPICIOUS OF MALIGNANCY The 1.3 cm x 1.2 cm x 0.9 cm taller than wide mass in the left breast is at a moderate suspicion for malignancy. An ultrasound guided biopsy is recommended. No enlarged axillary lymph nodes. Exam findings were discussed with the patient by Dr. Sousa. This exam was interpreted at Station ID: [id number]. Electronically Signed By: Junaid Castillo M.D. slc/:10/07/2022 12:28:27 Ultrasound BI-RADS: 4b Moderate suspicion of malignancy BI-RADS CATEGORY: (4b) - Mod Susp Biopsy [id number] Immediate follow-up LATERALITY: (L)
== END 2022-10-07 10:18 | disposition home or self-care (01) ==
LOC: DI 10:17
PROVIDERS: ATTEND Family Medicine
DX: R92.8 Other abnormal and inconclusive findings on diagnostic imaging of breast (principal)

== ENCOUNTER 2022-10-15 10:19 | Outpatient (CLI) | payer MEDICARE, OTHER ==
[~2022-10-15 10:19] MED LIST: LIDOCAINE 1%-EPI 1:100000 20 ML MDV ONE; LIDOCAINE-MPF 1% 5 ML VIAL ONE
[2022-10-15] MEDS ORDERED: LIDOCAINE-MPF 1% 5 ML VIAL TD ONE (12:01)
[2022-10-15] MEDS ORDERED: LIDOCAINE 1%-EPI 1:100000 20 ML MDV SUBQ ONE (12:01)
--- NOTE | 2022-10-16 10:45 | Mammography Report ---
UNILATERAL LEFT DIGITAL DIAGNOSTIC MAMMOGRAM POST-PROCEDURE IMAGING FOR MARKER PLACEMENT: 10/15/2022 CLINICAL: Post left breast ultrasound biopsy clip placement imaging. Comparison is made to exams dated: 10/07/2022 mammogram, 09/16/2022 mammogram, and 05/11/2021 mammogram - [facility]. The left breast is heterogeneously dense, which may obscure small masses (category c / 51-75% glandul ar tissue). There is a marker clip in the appropriate position in the left breast posterior depth central to the nipple, at 3:00 position on US. IMPRESSION: POST PROCEDURE MAMMOGRAM FOR MARKER PLACEMENT There is a marker clip in the appropriate position in the left breast posterior depth central to the nipple, at 3:00 position on US. Based on the Tyrer Cuzick model (a risk assessment model) the patients lifetime risk is 12.8% and he r 10 year risk is 0.0%. According to the ACR, ACS, and NCCN guidelines, an annual breast MRI exam erich ng with mammogram is recommended if the patients lifetime risk is 20% or greater. This exam was interpreted at Station ID: [id number]. NOTE: For mammograms, a report in lay terms will be sent to the patient. Approximately 15% of breast malignancies will not be visualized mammographically. In the management of a palpable breast mass, a negative mammogram must not discourage biopsy of a clinically suspicious lesion. Electronically Signed By: Meir Barnett M.D. lc/:10/15/2022 12:53:40 ACR BI-RADS Category Post-procedure mammogram for marker placement PARENCHYMAL PATTERN: (D) - The breast(s) demonstrate(s) heterogeneously dense fibroglandular parramony ma. BI-RADS CATEGORY: () - Unspecified - other recall n/a LATERALITY: (B)
--- NOTE | 2022-10-18 15:26 | Ultrasound Report ---
ULTRASOUND GUIDED BIOPSY LEFT BREAST USING VACUUM DEVICE WITH MARKING DEVICE INSERTED AND POST MAMMOG RAPHIC IMAGIN10/15/2022 CLINICAL: Left breast mass. PATIENT CONSENT: Risks (minor bleeding, infection, vasovagal reaction and repeat procedure), benefits and alternatives were explained to the patient and written informed consent was obtained. Correlation is made to exams dated: 10/07/2022 ultrasound, 10/07/2022 mammogram, 09/16/2022 mammogram, 05/11/2021 mammogram, 04/20/2020 mammogram, and 12/21/2018 mammogram - [facility]. An ultrasound guided biopsy using real-time ultrasound was performed for the concerning 1.3 cm x 1.2 cm x 0.9 cm mass located in the left breast at 3 o'clock posterior depth 7 cm from the nipple. This was described on the previous ultrasound report. The skin was prepped in the usual manner. Local an esthetic was administered to the access site. A skin kwaku was made in the breast. A biopsy needle w as placed adjacent to the abnormality under ultrasound guidance. Once the needle was documented to b e in the correct location, five specimens were obtained using the Mammotome biopsy system. A clip wa s inserted into the biopsy cavity. Post procedure mammographic imaging demonstrates the location dev ice at the targeted area. The specimens were sent to the laboratory for pathological analysis. IMPRESSION: ULTRASOUND GUIDED BIOPSY HIGH RISK BENIGN Ultrasound guided biopsy of the 1.3 cm x 1.2 cm x 0.9 cm mass in the left breast at 3 o'clock posteri or depth 7 cm from the nipple was successful. Due to the deep location of the mass, discussed close return precautions with the patient, including being of aware of symptoms of chest pain or shortness of breath. No immediate complications. 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 Pathology results are concor dant with imaging findings. A surgical evaluation is recommended for possible excisional biopsy. This exam was interpreted at Station ID: [id number]. Meir camacho,ar/:10/18/2022 10:09:23 BI-RADS CATEGORY: () - Unspecified - other recall n/a LATERALITY: (B)
== END 2022-10-15 10:20 | disposition home or self-care (01) ==
LOC: DI 10:19
PROVIDERS: ATTEND Family Medicine
DX: N60.92 Unspecified benign mammary dysplasia of left breast (principal)
CPT/HCPCS: 19083

== ENCOUNTER 2022-12-16 07:54 | Day surgery (SDC) | payer MEDICARE, OTHER ==
[~2022-12-16 07:54] MED LIST changes: -LIDOCAINE 1%-EPI 1:100000 20 ML MDV ONE
[2022-12-16] MEDS ORDERED: LACTATED RINGERS 1,000 ML IV ONE ×2 (08:26→11:39)
[2022-12-16] MEDS ORDERED: LIDOCAINE-MPF 1% 5 ML VIAL TD ONE (09:22)
[2022-12-16] MEDS ORDERED: ACETAMINOPHEN 500 MG TABLET PO ONE (09:32)
[2022-12-16] MEDS ORDERED: BUPIVACAINE 0.5%-EPI 1:200000 PF 30 ML VIAL ONE (09:37)
[2022-12-16] MEDS ORDERED: LIDOCAINE MPF 2%-EPI 1:200000 20 ML VIAL ONE (09:37)
[2022-12-16] MEDS ORDERED: LIDOCAINE-MPF 1% 30 ML VIAL ONE (09:38)
[2022-12-16] MEDS ORDERED: BUPIVACAINE 0.25% PF 30 ML VIAL ONE (09:38)
[2022-12-16] MEDS ORDERED: ONDANSETRON 4 MG/2 ML VIAL ONE (10:01)
[2022-12-16] MEDS ORDERED: PROPOFOL 200 MG/20 ML VIAL IVP ONE (10:01)
[2022-12-16] MEDS ORDERED: MIDAZOLAM 2 MG/2 ML VIAL ONE (10:01)
[2022-12-16] MEDS ORDERED: fentaNYL 100 MCG/2 ML VIAL ONE (10:01)
[2022-12-16] MEDS ORDERED: ROCURONIUM 50 MG/5 ML VIAL ONE (10:01)
[2022-12-16] MEDS ORDERED: LIDOCAINE-PF 2% 10 ML AMP SUBQ ONE (10:03)
[2022-12-16] MEDS ORDERED: ceFAZolin 1 GM VIAL ONE (10:37)
--- NOTE | 2022-12-16 10:42 | ANESTHESIA ---
Pre-Anesthesia VS, & Labs - Diagnosis atypical ductal hyperplasia - Procedure excisional L breast biopsy Vital Signs: Temp Pulse Resp BP Pulse Ox O2 Flow Rate 36.5 C 81 16 180/104 H 96 12/16/22 08:27 12/16/22 08:27 12/16/22 08:27 12/16/22 08:27 12/16/22 08:27 Height: 5 ft 6.5 in Weight (kg): 138 kg Body Mass Index: 48.3 BMI Classification: Morbidly Obese - NPO >8 hours - Is Patient ?: No - Lab Results Lab results reviewed: Yes Home Medications and Allergies Home Medications: Ambulatory Orders Acetaminophen [Tylenol] 650 mg PO Q6H PRN 12/09/22 Calcium Citrate/Vitamin D3 [Calcium Cit 315 mg-Vit D3 5Mcg] 1 each PO DAILY 12/09/22 Cholecalciferol (Vitamin D3) [Vitamin D3] 5,000 unit PO DAILY 12/09/22 Cranberry Fruit Extract [Cranberry] 500 mg PO DAILY 12/09/[address] [Depakote Dr] 250 mg PO QPM 12/09/22 Docusate Sodium 100Mg Capsule [Colace 100Mg Capsule] 100 mg PO DAILY PRN 12/09/22 Ibuprofen [Motrin] 600 mg PO Q8HR PRN 12/09/22 Inulin/Cholecalciferol (D3) [Fiber Gummies-Vitamin D3] 2 each PO DAILY 12/09/22 Loratadine [Claritin] 10 mg PO DAILY 12/09/22 Multivitamin 1 each PO DAILY 12/09/22 Naphazoline HCl/Pheniramine [Naphcon-A Eye Drops] 1 - 2 drops EACHEYE DAILY 12/09/22 Nitroglycerin [Nitrostat] 0.4 mg SL [id number] 12/09/22 Active Medications Cefazolin Sodium 3 gm/ Sodium (Chloride) 50 mls @ 100 mls/hr IV ONCE ONE Stop: 12/16/22 11:29 Gabapentin 600 mg PO TID 11/27/16 Levothyroxine Sodium [Levoxyl] 200 mcg PO DAILY 11/27/16 Lidocaine Patch 5% [Lidoderm Patch] 1 ea TD DAILY 11/27/16 Losartan Potassium [Cozaar] 50 mg PO DAILY 11/27/16 Omeprazole 40 mg PO DAILY 11/15/18 Liothyronine [Cytomel] 40 mcg PO QDAC 07/12/21 Furosemide [Lasix] 20 mg PO DAILY 07/06/22 Verapamil HCl [Verapamil ER] 240 mg PO QPM 07/06/22 Acetaminophen [Tylenol] 650 mg PO Q6H PRN 12/09/22 Calcium Citrate/Vitamin D3 [Calcium Cit 315 mg-Vit D3 5Mcg] 1 each PO DAILY 12/09/22 Cholecalciferol (Vitamin D3) [Vitamin D3] 5,000 unit PO DAILY 12/09/22 Cranberry Fruit Extract [Cranberry] 500 mg PO DAILY 12/09/[address] [Depakote Dr] 250 mg PO QPM 12/09/22 Docusate Sodium 100Mg Capsule [Colace 100Mg Capsule] 100 mg PO DAILY PRN 12/09/22 Ibuprofen [Motrin] 600 mg PO Q8HR PRN 12/09/22 Inulin/Cholecalciferol (D3) [Fiber Gummies-Vitamin D3] 2 each PO DAILY 12/09/22 Loratadine [Claritin] 10 mg PO DAILY 12/09/22 Multivitamin 1 each PO DAILY 12/09/22 Naphazoline HCl/Pheniramine [Naphcon-A Eye Drops] 1 - 2 drops EACHEYE DAILY 12/09/22 Nitroglycerin [Nitrostat] 0.4 mg SL [id number] 12/09/22 Allergies/Adverse Reactions: Allergies Allergy/AdvReac Type Severity Reaction Status Date / Time pollen extracts Allergy Respiratory Verified 07/06/22 15:52 Sulfa (Sulfonamide Allergy Hives Verified 07/06/22 15:52 Antibiotics) tolterodine Allergy tremors Verified 12/09/22 11:09 amoxicillin [From Augmentin] AdvReac Unknown Verified 07/06/22 15:52 baclofen AdvReac Unknown Verified 07/06/22 15:52 clavulanic acid AdvReac Unknown Verified 07/06/22 15:52 [From Augmentin] cyclobenzaprine AdvReac Unknown Verified 07/06/22 15:52 [From Flexeril] hydroxyzine AdvReac Unknown Verified 07/06/22 15:52 levofloxacin [From Levaquin] AdvReac Unknown Verified 07/06/22 15:52 tape Allergy Rash Uncoded 07/06/22 15:52 Anes History & Medical History - Anesthetic History Anesthesia Complications: reports: No previous complications Family history of Anesthesia Complications: Denies Family history of Malignant Hyperthermia: Denies - Medical History Cardiovascular: reports: Hypertension, Arrhythmia Pulmonary: reports: Sleep apnea, CPAP use Gastrointestinal: reports: GERD, Hiatal hernia, Colon polyps Urinary: reports: Incontinence Neuro: reports: None Musculoskeletal: reports: Osteoarthritis, Fibromyalgia, Chronic back pain Endocrine/Autoimmune: reports: HyPOthyroidism Blood Disorders: reports: None Skin: reports: Eczema Smoking Status: Never smoker - Surgical History General: reports: Cholecystectomy, Gastric surgery, Colonoscopy, Other Eyes Ears Nose Throat (EENT): reports: Cataracts Gynecologic: reports: section, Tubal ligation Orthopedic: reports: Knee replacement, Spine surgery Exam General: Alert, Oriented x3, Cooperative Dental: Dentures full Upper, Dentures full Lower Mouth Openin Fingerbreadth Neck Mobility: Normal Mallampati classification: II Thyromental Distance: less than 4 cm Respiratory: Decreased breath sounds (secondary to obesity) Cardiovascular: Regular rate Plan Anesthesia Type: General Consent for Procedure(s) Verified and Reviewed: Yes Code Status: Attempt Resuscitation ASA classification: 3-Severe systemic disease Is this case an emergency?: No
[2022-12-16] MEDS ORDERED: HYDROmorphone 0.5 MG/0.5 ML SYRINGE IVP PRN (10:43)
[2022-12-16] MEDS ORDERED: ONDANSETRON 4 MG/2 ML VIAL IVP PRN (10:43)
[2022-12-16] MEDS ORDERED: ATROPINE ABBOJECT 1 MG/10 ML SYRINGE IVP PRN (10:43)
[2022-12-16] MEDS ORDERED: METOCLOPRAMIDE 10 MG/2 ML VIAL IVP PRN (10:43)
[2022-12-16] MEDS ORDERED: MORPHINE 2 MG/ML CARPUJECT IVP PRN (10:43)
[2022-12-16] MEDS ORDERED: fentaNYL 100 MCG/2 ML VIAL IVP PRN (10:43)
[2022-12-16] MEDS ORDERED: ePHEDrine 50 MG/ML VIAL IVP PRN (10:43)
[2022-12-16] MEDS ORDERED: NALOXONE 0.4 MG/ML VIAL IVP PRN (10:43)
[2022-12-16] MEDS ORDERED: LIDOCAINE MPF 2%-EPI 1:200000 20 ML VIAL SUBQ ONE ×2 (10:53)
[2022-12-16] MEDS ORDERED: BUPIVACAINE 0.25% PF 30 ML VIAL SUBQ ONE ×2 (10:53)
[2022-12-16] MEDS ORDERED: LACTATED RINGERS 1,000 ML IV SCH (11:00)
[2022-12-16] MEDS ORDERED: SUGAMMADEX 200 MG/2 ML VIAL IVP ONE (11:20)
--- NOTE | 2022-12-16 11:35 | OPERATIVE REPORT ---
Operative Report - General Procedure Date: 12/16/22 Planned Procedure: excisional biopsy left breast lesion Pre-Op Diagnosis: atypical ductal hyperplasia Procedure Performed: excisional biopsy left breast lesion Post Op Diagnosis: atypcal ductal hyperplasia - Procedure Note Primary Surgeon: Dr. Gloria Vargas Anesthesia Technique: General LMA, Local Pathology: 1. Left breast lesion, short superior, long lateral, double anterior Estimated Blood Loss (mL): 10 Indications: The patient had an abnormal mammogram and biopsy proven atypical ductal hyperplasia. She was seen in the clinic where we discussed the risks, benefits, and alternatives of excisional biopsy. Risks include but are not limited to bleeding, infection, damage to surrounding structures, and positive margins or upstaging requiring further surgeries or procedures. The patient voiced understanding, her questions were answered, and she wished to proceed. A consent was signed by the patient in clinic. Findings: 1.Wire and clip included in specimen Complications: None - Other Other Information/Narrative: The patient was taken to the operating room and placed in the supine position. Preop antibiotics were given. ERAS medications were given. The patient was prepped and draped in the usual sterile fashion. A preop surgical timeout was performed. Attention was turned to the patient's left breast. An incision was made which incorporated the wire placed in radiology. Skin flaps were raised superiorly and inferiorly to the incision. At this point, sharp dissection was carried down to the level of the thick point of the wire. Then sure cut scissors were used to perform the excisional biopsy staying greater than a centimeter away from the wire in all directions. The lumpectomy specimen was removed and oriented with suture on the back table. The specimen was sent to mammography and the biopsy clip and previously placed wire were confirmed to be within the specimen. The specimen was then sent to pathology. The edges of the lumpectomy cavity were inspected and there were no palpable abnormalities. Hemostasis was confirmed and local was injected. The deep dermal tissues were closed with 3-0 Vicryl. A 4-0 Monocryl running stitch was placed in a subcuticular fashion. Skin glue was placed on the incision. The patient tolerated the procedure well. There were no complications.
[2022-12-16] MEDS ORDERED: oxyCODONE 5 MG TABLET PO PRN (11:38)
[2022-12-16] MEDS ORDERED: ACETAMINOPHEN 500 MG TABLET PO PRN (11:38)
[2022-12-16 12:41] VITALS: BP 151/65
[2022-12-16] MEDS ORDERED: oxyCODONE 5 MG TABLET ONE (12:49)
--- NOTE | 2022-12-16 13:47 | ANESTHESIA POST OP EVALUATION ---
Anesthesia Post Eval - Post Anesthesia Eval Vitals: Last Vital Signs Temp 36.4 C L 12/16/22 12:38 Pulse 70 12/16/22 12:38 Resp 16 12/16/22 12:38 BP 151/65 H 12/16/22 12:38 Pulse Ox 92 12/16/22 12:38 O2 Flow Rate CV Function Including HR & BP: Stable Pain Control: Satisfactory Nausea & Vomiting: Negative Mental Status: Baseline Respiratory Status: Airway Patent Hydration Status: Satisfactory Anesthesia Complications: None
--- NOTE | 2022-12-17 10:20 | Mammography Report ---
SPECIMEN LEFT BREAST: 12/16/2022 CLINICAL: Left breast specimen. Correlation is made to exams dated: 12/16/2022 localization, 12/16/2022 mammogram, and 10/15/2022 mammo gram - [facility]. A lumpectomy specimen was imaged for the 1.3 cm x 1.2 cm x 0.9 cm mass located in the left breast at 3 o'clock posterior depth 7 cm from the nipple. IMPRESSION: SPECIMEN The imaged specimen includes a biopsy clip and the distal portion of the localization wire. Discussed with OR staff at 1114 hours 12/16/2022. This exam was interpreted at Station ID: [id number]. Dr. Jaylen Rivers M.D. an/:12/16/2022 14:15:31 BI-RADS CATEGORY: () - Unspecified - other recall n/a LATERALITY: (B)
--- NOTE | 2022-12-17 10:20 | Ultrasound Report ---
ULTRASOUND GUIDED WIRE LOCALIZATION LEFT BREAST: 12/16/2022 CLINICAL: Pre op wire localization with ultrasound. Correlation is made to exams dated: 10/15/2022 ultrasound biopsy, 10/15/2022 mammogram, 10/07/2022 ultr asound, 10/07/2022 mammogram, 09/16/2022 mammogram, and 05/11/2021 mammogram - [facility] [address]. A wire localization using ultrasound guidance was performed for the 1.3 cm x 1.2 cm x 0.9 cm mass loc ated in the left breast at 3 o'clock posterior depth 7 cm from the nipple. This was described on the previous ultrasound report. The skin was prepped in the usual manner. Local anesthetic was adminis tered to the access site. The localization was approached from the lateral aspect. A wire was inser ced into the targeted area under ultrasound guidance. Post placement imaging demonstrates the tip de marcates the boundaries of the targeted area. IMPRESSION: WIRE LOCALIZATION Wire localization for the 1.3 cm x 1.2 cm x 0.9 cm mass in the left breast at 3 o'clock posterior dep th 7 cm from the nipple was successful. This exam was interpreted at Station ID: [id number]. Dr. Jaylen romano/penbandar:12/16/2022 09:47:28 BI-RADS CATEGORY: () - Unspecified - other recall n/a LATERALITY: (B)
--- NOTE | 2022-12-17 10:20 | Mammography Report ---
UNILATERAL LEFT DIGITAL DIAGNOSTIC MAMMOGRAM WITH MEDIOLATERAL POST-PROCEDURE IMAGING FOR MARKER PLAC EMENT: 12/16/2022 CLINICAL: Pre op wire localization with ultrasound. Comparison is made to exams dated: 10/15/2022 mammogram, 10/15/2022 ultrasound biopsy, and 10/07/2022 m ammogram - [facility]. The left breast is heterogeneously dense, which may obscure small masses (category c / 51-75% glandul ar tissue). There is a marker clip in the appropriate position in the left breast posterior depth 3:00 position. The thickened portion of the localization wire is within 1 cm of the marker clip on CC and MLO views. IMPRESSION: There is a marker clip in the appropriate position in the left breast posterior depth 3:00 position. The thickened portion of the localization wire is within 1 cm of the marker clip on CC and MLO views. Based on Tyrer-Cuzick model (a risk assessment model), the patient's lifetime risk is 24.0% and her 1 0 year risk is 0.0%. If a patient has an elevated risk, a more comprehensive evaluation should be con sidered and/or a referral to a genetic counselor. The [employer], [employer], and NCCN Guidelines advise the consideration of Breast MRI as an adjunct to screening mammog jose luis in patients whose "Lifetime risk to develop breast cancer" is 20% or higher. This exam was interpreted at Station ID: [id number]. NOTE: For mammograms, a report in lay terms will be sent to the patient. Approximately 15% of breast malignancies will not be visualized mammographically. In the management of a palpable breast mass, a negative mammogram must not discourage biopsy of a clinically suspicious lesion. Electronically Signed By: Dr. Jaylen Rivers M.D. an/:12/16/2022 09:53:59 ACR BI-RADS Category n/a PARENCHYMAL PATTERN: (D) - The breast(s) demonstrate(s) heterogeneously dense fibroglandular parenchy ma. BI-RADS CATEGORY: () - Unspecified - other recall n/a LATERALITY: (B)
== END 2022-12-16 07:55 | disposition home or self-care (01) ==
LOC: SDS 07:54
PROVIDERS: ATTEND Surgery
PROC: 0HBU0ZZ Excision of Left Breast, Open Approach (ICD-10-PCS; principal; 2022-12-16 10:45)
DX: C50.812 Malignant neoplasm of overlapping sites of left female breast (principal); Z17.0 Estrogen receptor positive status [ER+]; E66.01 Morbid (severe) obesity due to excess calories; Z68.42 Body mass index [BMI] 45.0-49.9, adult; G47.30 Sleep apnea, unspecified; E03.9 Hypothyroidism, unspecified; E11.9 Type 2 diabetes mellitus without complications; G47.33 Obstructive sleep apnea (adult) (pediatric); I10 Essential (primary) hypertension
CPT/HCPCS: 19285; 19301; 76098; 77065; A9270; J7120

== ENCOUNTER 2023-01-08 12:21 | Outpatient (CLI) | payer MEDICARE, OTHER ==
[2023-01-08 12:49] LABS: BASOPHILS # (AUTO) 0.1 10^3/uL (0.0-0.1); BASOPHILS % (AUTO) 0.9 %; EOSINOPHILS # (AUTO) 0.4 10^3/uL (0.0-0.7); EOSINOPHILS % (AUTO) 5.2 %; HCT - HEMATOCRIT 40.9 % (37.0-47.0); HGB - HEMOGLOBIN 12.7 g/dL (12.0-16.0); LYMPHOCYTES # (AUTO) 2.1 10^3/uL (1.5-3.5); LYMPHOCYTES % (AUTO) 30.7 %; MEAN CORPUSCULAR HEMOGLOBIN 27.7 pg (27.0-31.0); MEAN CORPUSCULAR HGB CONC 31.1 g/dL (32.0-36.0); MEAN CORPUSCULAR VOLUME 89.3 fL (81.0-99.0); MEAN PLATELET VOLUME 10.9 fL (7.9-10.8); MONOCYTES # (AUTO) 0.6 10^3/uL (0.0-1.0); MONOCYTES % (AUTO) 8.9 %; NEUTROPHILS # (AUTO) 3.7 10^3/uL (1.5-6.6); PLT - PLATELET COUNT 293 10^3/uL (130-450); RED BLOOD COUNT 4.58 10^6/uL (4.20-5.40); RED CELL DISTRIBUTION WIDTH 14.1 % (12.0-15.0); WHITE BLOOD COUNT 6.8 x10^3/uL (4.8-10.8)
[2023-01-08 13:01] LABS: ALBUMIN 3.8 g/dL (3.2-5.5); BILIRUBIN,TOTAL 0.5 mg/dL (0.2-1.0); CREATININE 1.1 mg/dL (0.4-1.0); POTASSIUM 4.5 mmol/L (3.5-5.0); TOTAL PROTEIN 7.7 g/dL (6.7-8.2)
[2023-01-08 13:19] LABS: THYROID STIMULATING HORMONE < 0.08 uIU/mL (0.34-5.60)
[2023-01-08 13:21] LABS: FREE T3 3.49 pg/mL (2.5-3.9); FREE T4 (FREE THYROXINE) 1.43 ng/dL (0.58-1.64)
[2023-01-08 17:50] LABS: ESTIMATED AVERAGE GLUCOSE 114 mg/dL (70-100); HEMOGLOBIN A1c% 5.6 % (4.27-6.07)
== END 2023-01-08 12:22 | disposition home or self-care (01) ==
LOC: LAB 12:21
PROVIDERS: ATTEND Family Medicine
DX: E11.9 Type 2 diabetes mellitus without complications (principal); G47.33 Obstructive sleep apnea (adult) (pediatric); E66.01 Morbid (severe) obesity due to excess calories
CPT/HCPCS: 36415; 80053; 83036; 84439; 84443; 84481; 85025

== ENCOUNTER 2023-01-13 07:58 | Day surgery (SDC) | payer MEDICARE, OTHER ==
[2023-01-13] MEDS ORDERED: LACTATED RINGERS 1,000 ML IV ONE (08:00)
[2023-01-13] MEDS ORDERED: ACETAMINOPHEN 500 MG TABLET PO ONE (08:23)
[2023-01-13] MEDS ORDERED: ceFAZolin 2 GM VIAL ONE (08:23)
[2023-01-13] MEDS ORDERED: ALPRAZolam 0.25 MG TABLET PO ONE (09:00)
[2023-01-13] MEDS ORDERED: BUPIVACAINE 0.5%-EPI 1:200000 PF 30 ML VIAL ONE (09:55)
[2023-01-13] MEDS ORDERED: ONDANSETRON 4 MG/2 ML VIAL ONE (09:59)
[2023-01-13] MEDS ORDERED: PROPOFOL 200 MG/20 ML VIAL IVP ONE ×2 (09:59→11:51)
[2023-01-13] MEDS ORDERED: ROCURONIUM 50 MG/5 ML VIAL ONE (09:59)
[2023-01-13] MEDS ORDERED: fentaNYL 100 MCG/2 ML VIAL ONE (10:01)
[2023-01-13] MEDS ORDERED: MIDAZOLAM 2 MG/2 ML VIAL ONE (10:01)
[2023-01-13] MEDS ORDERED: BUPIVACAINE 0.5%-EPI 1:200000 PF 30 ML VIAL SUBQ ONE (11:03)
[2023-01-13] MEDS ORDERED: ePHEDrine 50 MG/ML VIAL IVP ONE (11:16)
[2023-01-13] MEDS ORDERED: SUGAMMADEX 200 MG/2 ML VIAL IVP ONE (11:50)
[2023-01-13] MEDS ORDERED: LACTATED RINGERS 350 ML IV ONE (12:24)
[2023-01-13] MEDS ORDERED: HYDROmorphone 0.5 MG/0.5 ML SYRINGE IVP PRN (12:28)
[2023-01-13] MEDS ORDERED: fentaNYL 100 MCG/2 ML VIAL IVP PRN (12:28)
[2023-01-13] MEDS ORDERED: MORPHINE 2 MG/ML CARPUJECT IVP PRN (12:28)
[2023-01-13] MEDS ORDERED: ATROPINE ABBOJECT 1 MG/10 ML SYRINGE IVP PRN (12:28)
[2023-01-13] MEDS ORDERED: METOCLOPRAMIDE 10 MG/2 ML VIAL IVP PRN (12:28)
[2023-01-13] MEDS ORDERED: ONDANSETRON 4 MG/2 ML VIAL IVP PRN (12:28)
[2023-01-13] MEDS ORDERED: NALOXONE 0.4 MG/ML VIAL IVP PRN (12:28)
[2023-01-13] MEDS ORDERED: ePHEDrine 50 MG/ML VIAL IVP PRN (12:28)
--- NOTE | 2023-01-13 12:28 | OPERATIVE REPORT ---
Breast Cancer Operative Report - General Procedure Date: 12/16/22 Pre-Op Diagnosis: Invasive ductal carcinoma Clinical Preamble: The patient had a screening mammogram which revealed calcifications. Needle biopsy showed atypical ductal hyperplasia. Excisional biopsy upstaged to invasive ductal carcinoma. Her margins are negative but a sentinel lymph node biopsy is required. The patient has also developed a hematoma in her lumpectomy cavity. She was seen and evaluated in the clinic where we discussed the risks, benefits, and alternatives of sentinel lymph node biopsy and hematoma evacuation including bleeding, infection, damage to surrounding structures, numbness, lymphedema, and the need for further surgeries or procedures. The patient voiced understanding, her questions were answered, and she wished to proceed. A consent was signed by the patient at that time. Post Op Diagnosis: Invasive ductal carcinoma Primary Surgeon: Dr. Gloria Vargas Anesthesia Provider: Jo Ann Woods CRNA Anesthesia Technique: General ET tube, Local Estimated Blood Loss (in cc): 20 - Preoperative Rationale for Surgery Indication: Additional axillary surgery after identification of invasive disease Preoperative Biopsy: Surgical biopsy following suspicious lesion on needle biop sy (Initial needle biopsy demonstrated ADH, excisional biopsy demonstrated invasive ductal carcinoma) Preoperative Diagnosis (pathology): Invasive carcinoma Neoadjuvant Treatment: None - Operative Details (Breast) Breast Procedure: Partial mastectomy / BCS / Wide local excision (Already complete) Additional Notes on Breast Procedure (Narrative): The patient's previous breast incision was open and a moderate amount of hematoma was evacuated. The area was irrigated with warm normal saline and the amount of 1 L. At this time, fluid returned was clear. No active bleeding was identified. A drain was placed in the lumpectomy cavity to prevent recurrence of the hematoma. It was sewn into place with 2-0 silk. The deep dermal tissues were reapproximated with 3-0 Vicryl, and the skin edges were reapproximated with 4-0 Monocryl in a running subcuticular fashion. Sterile dressing of skin glue was placed. - Operative Details (Axilla) Axillary Procedure: SLNB only Axillary Incision Location: Axillary Sycamore Node Biopsy Technique: Technetium Internal Mammary Radioactivity and Method of Detection: No Number of SUBMITTED Sycamore Nodes: 4 Structures Identified and Preserved: Not applicable, SNLB done Additional Notes on Axillary Surgery (Narrative): The patient was taken to the operating room and placed in the supine position. Preop antibiotics were given. ERAS medications were given. The patient was prepped and draped in the usual sterile fashion. A preop surgical timeout was performed. Attention was then turned to the left axilla. An incision was made just inferior to the hairline at the area of greatest uptake using the neoprobe device. The incision was made using a 15 blade scalpel and carried down through the skin and subcutaneous tissues to the level of the axillary fascia. The fascia was incised. The sentinel lymph nodes were identified using the Neoprobe. Clips were used proximally and distally to the nodes and the nodes were removed the first node had a maximal reading of 3387 on the back table and was noted to be markedly enlarged. The second sentinel lymph node measured 12 on the back table. A third lymph node measured 823, and the fourth lymph node measured 1517. On further inspection, there were no additional lymph nodes that had at least 10% uptake, 339, and no additional abnormal palpable nodes. Hemostasis was confirmed in the axilla. The deep dermal tissues were closed with 3-0 Vicryl. A 4-0 Monocryl running stitch was placed in a subcuticular fashion. Skin glue was placed over both incisions. The patient tolerated the procedure well. There were no complications. - Procedure Completion Unplanned Events/Complications: None Closure (Narrative): See above
[2023-01-13] MEDS ORDERED: ACETAMINOPHEN 500 MG TABLET PO PRN (12:36)
[2023-01-13] MEDS ORDERED: oxyCODONE 5 MG TABLET PO PRN (12:36)
[2023-01-13] MEDS ORDERED: HYDROmorphone 0.5 MG/0.5 ML SYRINGE ONE (12:47)
[2023-01-13] MEDS ORDERED: LACTATED RINGERS 1,000 ML IV SCH (13:00)
[2023-01-13 13:41] VITALS: BP 126/70
--- NOTE | 2023-01-13 15:39 | ANESTHESIA ---
Pre-Anesthesia VS, & Labs - Diagnosis invasive ductal CA - Procedure L breast sentinel nodebx, hematoma evacuation Vital Signs: Temp Pulse Resp BP Pulse Ox O2 Flow Rate 36.2 C L 74 12 126/70 93 01/13/23 13:40 01/13/23 13:40 01/13/23 13:40 01/13/23 13:40 01/13/23 13:40 Height: 5 ft 6 in Weight (kg): 136 kg Body Mass Index: 48.4 BMI Classification: Morbidly Obese - NPO >8 hours - Is Patient ?: No Home Medications and Allergies Active Medications Acetaminophen (Acetaminophen 500 Mg Tablet) 500 mg PO Q4HR PRN PRN Reason: Pain or Fever > 38C (100.4F) Oxycodone HCl (Oxycodone 5 Mg Tablet) 5 mg PO Q4HR PRN PRN Reason: Moderate Pain (Level 4-6) Gabapentin 600 mg PO TID 11/27/16 Levothyroxine Sodium [Levoxyl] 200 mcg PO DAILY 11/27/16 Lidocaine Patch 5% [Lidoderm Patch] 1 ea TD DAILY 11/27/16 Losartan Potassium [Cozaar] 50 mg PO DAILY 11/27/16 Omeprazole 40 mg PO DAILY 11/15/18 Liothyronine [Cytomel] 40 mcg PO QDAC 07/12/21 Furosemide [Lasix] 20 mg PO DAILY 07/06/22 Verapamil HCl [Verapamil ER] 240 mg PO QPM 07/06/22 Acetaminophen [Tylenol] 500 mg PO Q6H PRN 12/09/22 Calcium Citrate/Vitamin D3 [Calcium Cit 315 mg-Vit D3 5Mcg] 1 each PO DAILY 12/09/22 Cholecalciferol (Vitamin D3) [Vitamin D3] 5,000 unit PO DAILY 12/09/22 Cranberry Fruit Extract [Cranberry] 500 mg PO DAILY 12/09/[address] [Depakote Dr] 250 mg PO QPM 12/09/22 Docusate Sodium 100Mg Capsule [Colace 100Mg Capsule] 100 mg PO DAILY PRN 12/09/22 Ibuprofen [Motrin] 600 mg PO Q8HR PRN 12/09/22 Inulin/Cholecalciferol (D3) [Fiber Gummies-Vitamin D3] 2 each PO DAILY 12/09/22 Loratadine [Claritin] 10 mg PO DAILY 12/09/22 Multivitamin 1 each PO DAILY 12/09/22 Nitroglycerin [Nitrostat] 0.4 mg SL [id number] 12/09/22 Allergies/Adverse Reactions: Allergies Allergy/AdvReac Type Severity Reaction Status Date / Time adhesive tape Allergy Rash Verified 12/16/22 10:48 pollen extracts Allergy Respiratory Verified 07/06/22 15:52 Sulfa (Sulfonamide Allergy Hives Verified 07/06/22 15:52 Antibiotics) tolterodine Allergy tremors Verified 12/09/22 11:09 amoxicillin [From Augmentin] AdvReac Unknown Verified 07/06/22 15:52 baclofen AdvReac Unknown Verified 07/06/22 15:52 clavulanic acid AdvReac Unknown Verified 07/06/22 15:52 [From Augmentin] cyclobenzaprine AdvReac Unknown Verified 07/06/22 15:52 [From Flexeril] hydroxyzine AdvReac Unknown Verified 07/06/22 15:52 levofloxacin [From Levaquin] AdvReac Unknown Verified 07/06/22 15:52 Anes History & Medical History - Anesthetic History Anesthesia Complications: reports: No previous complications Family history of Anesthesia Complications: Denies Family history of Malignant Hyperthermia: Denies - Medical History Cardiovascular: reports: Hypertension, Arrhythmia Pulmonary: reports: Sleep apnea, CPAP use Gastrointestinal: reports: GERD, Hiatal hernia, Colon polyps Urinary: reports: Incontinence Neuro: reports: None Musculoskeletal: reports: Osteoarthritis, Fibromyalgia, Chronic back pain Endocrine/Autoimmune: reports: HyPOthyroidism Blood Disorders: reports: None Skin: reports: Eczema Smoking Status: Never smoker - Surgical History General: reports: Cholecystectomy, Gastric surgery, Colonoscopy, Other Eyes Ears Nose Throat (EENT): reports: Cataracts Gynecologic: reports: section, Tubal ligation Orthopedic: reports: Knee replacement, Spine surgery Exam General: Alert, Oriented x3, Cooperative Dental: Other (edentulous) Mouth Openin Fingerbreadth Neck Mobility: Normal Mallampati classification: II Thyromental Distance: 4-6 cm Respiratory: Lungs clear Cardiovascular: Regular rate Plan Anesthesia Type: General Consent for Procedure(s) Verified and Reviewed: Yes Code Status: Attempt Resuscitation ASA classification: 3-Severe systemic disease Is this case an emergency?: No
--- NOTE | 2023-01-13 15:39 | ANESTHESIA POST OP EVALUATION ---
Anesthesia Post Eval - Post Anesthesia Eval Vitals: Last Vital Signs Temp 36.2 C L 01/13/23 13:40 Pulse 74 01/13/23 13:40 Resp 12 01/13/23 13:40 BP 126/70 01/13/23 13:40 Pulse Ox 93 01/13/23 13:40 O2 Flow Rate CV Function Including HR & BP: Stable Pain Control: Satisfactory Nausea & Vomiting: Negative Mental Status: Baseline Respiratory Status: Airway Patent Hydration Status: Satisfactory Anesthesia Complications: None
--- NOTE | 2023-01-15 09:15 | Nuclear Medicine Report ---
PROCEDURE: RA Curiel ID of Sntinl Node INDICATIONS: INVASIVE DUCTAL CA Lymphoseek RADIOPHARMACEUTICAL: 0.5-1.0 mCi technetium 99m tilmanocept (Lymphoseek). TECHNIQUE: The left breast was prepped in sterile fashion. 0.5-1.0 mCi technetium 99m Lymphoseek was injected intradermally in the outer edge of areola. COMPARISON: None. FINDINGS: No images were obtained. IMPRESSION: [place] lymph node injection without imaging. Reviewed by: Azalea Blank MD on 01/15/2023 9:14 AM PDT Approved by: Azalea Blank MD on 01/15/2023 9:14 AM PDT Station ID: [id number]
== END 2023-01-13 07:59 | disposition home or self-care (01) ==
LOC: DI 07:58
PROVIDERS: ATTEND Surgery
PROC: 07B60ZX Excision of Left Axillary Lymphatic, Open Approach, Diagnostic (ICD-10-PCS; principal; 2023-01-13 10:00)
DX: C50.912 Malignant neoplasm of unspecified site of left female breast (principal); G47.33 Obstructive sleep apnea (adult) (pediatric); I10 Essential (primary) hypertension; E11.9 Type 2 diabetes mellitus without complications; E66.01 Morbid (severe) obesity due to excess calories; Z68.42 Body mass index [BMI] 45.0-49.9, adult
CPT/HCPCS: 38792

== ENCOUNTER 2023-04-14 09:56 | Outpatient (CLI) | payer MEDICARE, OTHER ==
--- NOTE | 2023-04-14 10:19 | SLEEP CARE CONSULTATION ---
Information from patient questionnaire entered by Patsy Toure. I have reviewed and concur with the information entered by Patsy Toure. This document represents the service I personally performed and the decisions made by me, Scott Sauceda MD, [facility]. History of Present Illness Service Date and Time: 04/14/2023 0956 Previous diagnosis: Severe, Obstructive Sleep Apnea-Hypopnea Syndrome AHI: 40.5 Reason for follow up: annual (LAST SEEN 03/2022) Equipment type: CPAP (DAHL) Equipment obtained from: [facility] Mask style: Nasal pillows Year and Where: 2012 [facility] HPI additional information: Ms. Wallace returned today for follow up of nasal CPAP therapy. She was diagnosed to have severe obstructive sleep apnea-hypopnea syndrome. The patient went to [facility] (now [employer] [facility]) in [place] for the equipment and was fitted with the Respironics nasal pillows. She reports using the device nightly and all through the night. The compliance report shows usage in 180 nights out of the past 180 nights, averaging 8.0 hours a night. She complained of no particular problem with the device such as soreness on the face, dry nose, epistaxis, nasal congestion or headache. She thinks that the pressure of 6 - 10 cmH2O is comfortable. On the CPAP therapy she notices improvement in her sleep quality, and that she wakes up feeling fresher in the morning and more awake/alert during the day. The [place] Sleepiness Scale score 4. Her notices no snore at all. The average residual AHI is 1.5; and average time in large leak per day is 11 minutes. Her machine is actually not part of the recall (we entered the serial number into [employer] website). It is 4 years old. Sleep Study - Results Year and Where: 2012 [facility] CPAP Compliance Data - Data Reviewed with Patient Average duration of nightly device use: 7HRS 57MINS 36SECS Compliance rate %: 100 (10/12/22-04/09/23) Current pressure setting (cmH2O): 6-10 Average residual AHI: 1.5 Subjective Initial [place] Sleepiness Scale score: 7 (in 2012) Current [place] Sleepiness Scale score: 4 (04/14/23) Allergies and Home Medications Drug allergies reviewed: Yes Home medication list reviewed: Yes Allergy and home medication list: Allergies adhesive tape Allergy (Verified 04/11/23 14:29) Rash PAPER TAPE pollen extracts Allergy (Verified 04/11/23 14:29) Respiratory Sulfa (Sulfonamide Antibiotics) Allergy (Verified 04/11/23 14:29) Hives tolterodine Allergy (Verified 04/11/23 14:29) tremors amoxicillin [From Augmentin] Adverse Reaction (Verified 04/11/23 14:29) Unknown baclofen Adverse Reaction (Verified 04/11/23 14:29) Unknown clavulanic acid [From Augmentin] Adverse Reaction (Verified 04/11/23 14:29) Unknown cyclobenzaprine [From Flexeril] Adverse Reaction (Verified 04/11/23 14:29) Unknown hydroxyzine Adverse Reaction (Verified 04/11/23 14:29) Unknown levofloxacin [From Levaquin] Adverse Reaction (Verified 04/11/23 14:29) Unknown Review of Systems Review of systems same as previous: Yes (BREAST CANCER NOVEMBER 2022, LYPHECTOMY & LUMPECTOMY DECEMBER 2022) Physical Exam Vital signs obtained and entered by: PATSY Faulkner MA Blood Pressure: 132/82 (LEFT WRIST) Cuff size: regular Heart Rate: 78 O2 Saturation: 95 Height: 5 ft 6 in Weight: 298 lb 6.4 oz Body Mass Index: 48.2 BMI Classification: Morbidly Obese Impression and Plan IMPRESSION: 1. Obstructive Sleep Apnea-Hypopnea Syndrome, severe with the patient doing well on nasal CPAP therapy. She has excellent compliance and significant clinical improvement. The current pressure appears effective and comfortable. Overall, she is very satisfied with the treatment and plans to continue with it long-term. No adjustment is necessary today. PLAN: 1. Continue with autoCPAP set at 6 - 10 cmH2O. 2. Try to lose weight 3. Try Respironics DreamWear nasal pillows. 4. Return in one year for follow up or earlier if there is any problem with the treatment. She will be eligible for a new machine then. Continue with device pressure at (cmH2O): 6-10 Counseling Topics: Weight control Follow up with Sleep Care in: 1 year Visit Type: In Office Time Spent with Patient (minutes): 15 Provider Statement: I spent 100% of the Face to Face Visit with the patient with greater than 50% spent counseling the patient and coordination of care.
[2023-04-14 10:27] VITALS: BP 132/82; O2SAT 95
== END 2023-04-14 09:57 | disposition home or self-care (01) ==
LOC: SC 09:56
PROVIDERS: ATTEND Internal Medicine Pulmonary Disease
DX: G47.33 Obstructive sleep apnea (adult) (pediatric) (principal); E66.01 Morbid (severe) obesity due to excess calories; Z68.42 Body mass index [BMI] 45.0-49.9, adult
CPT/HCPCS: 99212; G0463

== ENCOUNTER 2023-05-09 10:40 | Outpatient (CLI) | payer MEDICARE, OTHER ==
[2023-05-09 10:59] LABS: BASOPHILS # (AUTO) 0.1 10^3/uL (0.0-0.1); BASOPHILS % (AUTO) 0.7 %; EOSINOPHILS # (AUTO) 0.2 10^3/uL (0.0-0.7); EOSINOPHILS % (AUTO) 2.7 %; HCT - HEMATOCRIT 41.6 % (37.0-47.0); LYMPHOCYTES # (AUTO) 2.4 10^3/uL (1.5-3.5); LYMPHOCYTES % (AUTO) 29.3 %; MEAN CORPUSCULAR HEMOGLOBIN 26.6 pg (27.0-31.0); MEAN CORPUSCULAR HGB CONC 31.3 g/dL (32.0-36.0); MEAN CORPUSCULAR VOLUME 85.2 fL (81.0-99.0); MEAN PLATELET VOLUME 10.3 fL (7.9-10.8); MONOCYTES # (AUTO) 0.8 10^3/uL (0.0-1.0); MONOCYTES % (AUTO) 9.6 %; NEUTROPHILS # (AUTO) 4.7 10^3/uL (1.5-6.6); NEUTROPHILS % (AUTO) 57.2 %; PLT - PLATELET COUNT 309 10^3/uL (130-450); RED BLOOD COUNT 4.88 10^6/uL (4.20-5.40); RED CELL DISTRIBUTION WIDTH 15.6 % (12.0-15.0); WHITE BLOOD COUNT 8.2 x10^3/uL (4.8-10.8)
[2023-05-09 11:13] LABS: BUN - BLOOD UREA NITROGEN 16 mg/dL (6-20); CALCIUM 9.1 mg/dL (8.5-10.3); CARBON DIOXIDE - CO2 28 mmol/L (21-32); CHLORIDE 104 mmol/L (101-111); CHOL/HDL RATIO 3.5 (<4.4); CHOLESTEROL 158 mg/dL; GFR - MDRD 54 (>89); GLUCOSE 96 mg/dL (74-104); HDL CHOLESTEROL 45 mg/dL; LDL CHOLESTEROL,CALCULATED 85 mg/dL; LDL/HDL RATIO 1.9 (<4.4); POTASSIUM 4.7 mmol/L (3.5-4.5); SODIUM 138 mmol/L (135-145); TRIGLYCERIDES 141 mg/dL (48-352); VLDL CHOLESTEROL 28 mg/dL
[2023-05-09 11:29] LABS: THYROID STIMULATING HORMONE 0.04 uIU/mL (0.34-5.60)
[2023-05-09 12:36] LABS: ESTIMATED AVERAGE GLUCOSE 126 mg/dL (70-100)
== END 2023-05-09 10:41 | disposition home or self-care (01) ==
LOC: LAB 10:40
PROVIDERS: ATTEND Family Medicine
DX: I10 Essential (primary) hypertension (principal); I27.20 Pulmonary hypertension, unspecified; E03.9 Hypothyroidism, unspecified; R53.83 Other fatigue; E11.9 Type 2 diabetes mellitus without complications
CPT/HCPCS: 36415; 80048; 80061; 83036; 83721; 84439; 84443; 84481; 85025

== ENCOUNTER 2023-10-06 08:00 | Outpatient (CLI) | payer MEDICARE, OTHER ==
--- NOTE | 2023-10-06 13:16 | XRAY Report ---
PROCEDURE: Shoulder 3 View RT INDICATIONS: RIGHT SHOULDER PAIN TECHNIQUE: 4 views of the shoulder were acquired. COMPARISON: None. FINDINGS: Bones: Normal mineralization. No acute fractures. There is lateral downsloping of the acromion, unde rsurface spurring, sclerosis, and hypertrophy at the greater tuberosity. Mild hypertrophic degenerati on at the AC joint. Glenohumeral joint is intact. Soft tissues: No suspicious soft tissue calcifications. The visualized lungs are within normal limi ts. IMPRESSION: Lateral acromial downsloping may predispose to rotator cuff injury. Mild degeneration at the AC joint. Reviewed by: Chinyere Maciel MD on 10/06/2023 1:14 PM PST Approved by: Chinyere Maciel MD on 10/06/2023 1:14 PM PST Station ID: [id number]
== END 2023-10-06 23:59 | disposition home or self-care (01) ==
LOC: DI.WOS 08:00
PROVIDERS: ATTEND Physician Assistant Surgical
DX: M19.011 Primary osteoarthritis, right shoulder (principal)

== ENCOUNTER 2023-11-05 09:38 | Outpatient (CLI) | payer MEDICARE, OTHER ==
--- NOTE | 2023-11-06 08:34 | Mammography Report ---
BILATERAL DIGITAL DIAGNOSTIC MAMMOGRAM 3D/2D WITH LATEROMEDIAL SPOT COMPRESSION - LEFT BREAST POST LUIS MANUEL MPECTOMY: 11/05/2023 CLINICAL: Oncology follow up of left breast cancer. Post left lumpectomy. Due for bilateral. Comparison is made to exams dated: 12/16/2022 mammogram, 10/15/2022 mammogram, 10/07/2022 mammogram, mammogram, 05/11/2021 mammogram, and 04/20/2020 mammogram - [facility]. Both breasts are heterogeneously dense, which may obscure small masses (category c / 51-75% glandular tissue). There are benign post operative findings in the left breast. No significant masses, calcifications, or other findings are seen in either breast. IMPRESSION: BENIGN There is no mammographic evidence of malignancy. Expected post-operative findings in the left breast. A 1 year screening mammogram is recommended. Exam findings were conveyed to the patient. This exam was interpreted at Station ID: [id number]. NOTE: For mammograms, a report in lay terms will be sent to the patient. Approximately 15% of breast malignancies will not be visualized mammographically. In the management of a palpable breast mass, a negative mammogram must not discourage biopsy of a clinically suspicious lesion. Electronically Signed By: Junaid Castillo M.D. slc/:11/05/2023 10:31:00 ACR BI-RADS Category 2: Benign Finding(s) 3342F PARENCHYMAL PATTERN: (D) - The breast(s) demonstrate(s) heterogeneously dense fibroglandular bharathi brian. BI-RADS CATEGORY: (2) - 2 RECOMMENDATION: (ANNUAL) - Recommend routine annual screening mammography. [id number] 1 year screening LATERALITY: (B)
== END 2023-11-05 09:39 | disposition home or self-care (01) ==
LOC: DI 09:38
PROVIDERS: ATTEND Surgery
DX: C50.812 Malignant neoplasm of overlapping sites of left female breast (principal)

== ENCOUNTER 2023-11-10 10:09 | Outpatient (CLI) | payer MEDICARE, OTHER ==
--- NOTE | 2023-11-10 18:25 | MRI Report ---
PROCEDURE: Lumbar Spine WO INDICATIONS: SPINAL STENOSIS TECHNIQUE: Noncontrast sagittal T1 spin echo and T2 fast echo, sagittal STIR, axial T1 and T2 fast spin echo thr ough the lumbar spine. In cases with scoliosis, additional coronal T2 fast spin echo may be performe d. COMPARISON: None. FINDINGS: Image quality: Excellent. Alignment and Curvature: Remote posterior decompression and posterior lateral eligio and pedicle screw f ixation and interbody prosthesis placement at L4-L5. Trace anterolisthesis of L4 on L5. Trace anterol isthesis of L5 on S1. Bone Marrow: Marrow is of normal overall signal. No acute vertebral body compression fractures. Spinal Cord: Conus medullaris terminates at the L1 level. Visualized cord demonstrates normal signa l and size. Paraspinous Soft Tissues: No paravertebral masses. T12-L1: Disc bulge with shallow associated superior and inferior disc extrusion without impingement on the nerve root structure. No canal stenosis or foraminal stenosis. L1-L2: Normal in appearance. L2-L3: Disc bulge. Facet hypertrophy. No significant canal stenosis. Mild to moderate bilateral fo raminal stenosis. L3-L4: Disc bulge. Prominent facet hypertrophy. Moderate canal stenosis. Mild to moderate left fora jose stenosis. L4-L5: Remote posterior decompression and posterior lateral fusion. No canal stenosis. No significa nt foraminal stenosis suspected. L5-S1: Exuberant facet hypertrophy. No canal stenosis or significant foraminal stenosis. IMPRESSION: 1. Underlying multilevel facet arthropathy, most notably at L3-L4 and L5-S1. 2. Remote posterior decompression and posterior lateral fusion at L4-L5. No canal stenosis or suspect ed foraminal stenosis at that level. 3. At L3-L4, there is moderate canal stenosis. 4. No foraminal nerve root impingement. Reviewed by: Vishal Domínguez MD on 11/10/2023 6:23 PM PDT Approved by: Vishal Domínguez MD on 11/10/2023 6:23 PM PDT Station ID: [id number]
== END 2023-11-10 10:10 | disposition home or self-care (01) ==
LOC: DI 10:09
PROVIDERS: ATTEND Orthopaedic Surgery Orthopaedic Surgery of the Spine
DX: M48.061 Spinal stenosis, lumbar region without neurogenic claudication (principal); M47.816 Spondylosis without myelopathy or radiculopathy, lumbar region; M47.817 Spondylosis without myelopathy or radiculopathy, lumbosacral region

== ENCOUNTER 2024-01-22 08:00 | Outpatient (CLI) | payer MEDICARE, OTHER ==
[2024-01-22 16:44] LABS: CALCIUM 9.3 mg/dL (8.5-10.3); POTASSIUM 4.1 mmol/L (3.5-4.5)
== END 2024-01-22 23:59 | disposition home or self-care (01) ==
LOC: LAB.R 08:00
PROVIDERS: ATTEND Registered Nurse
DX: E87.8 Other disorders of electrolyte and fluid balance, not elsewhere classified (principal)
CPT/HCPCS: 80048

== ENCOUNTER 2024-04-12 11:20 | Outpatient (CLI) | payer MEDICARE, OTHER ==
--- NOTE | 2024-04-12 09:51 | SLEEP CARE CONSULTATION ---
Information from patient questionnaire entered by Patsy Toure. I have reviewed and concur with the information entered by Patsy Toure. This document represents the service I personally performed and the decisions made by me, Scott Sauceda MD, [facility]. History of Present Illness Service Date and Time: 04/12/2024 1020 Previous diagnosis: Severe, Obstructive Sleep Apnea-Hypopnea Syndrome AHI: 40.5 Reason for follow up: annual (LAST SEEN 03/2023) Equipment type: CPAP (DAHL) Equipment obtained from: [facility] Mask style: Nasal pillows Year and Where: 2012 [facility] HPI additional information: Ms. Wallace returned today for follow up of nasal CPAP therapy. She was diagnosed with severe obstructive sleep apnea-hypopnea syndrome. The patient went to [facility] (now [facility] in [place] for the equipment and was fitted with the Respironics nasal pillows. She reports using the device nightly and all through the night. The compliance report shows usage in 362 nights out of the past 365 nights, averaging 7.6 hours a night. She complained of no particular problem with the device such as soreness on the face, dry nose, epistaxis, nasal congestion or headache. She thinks that the pressure of 6 - 10 cmH2O is comfortable. On the CPAP therapy she notices improvement in her sleep quality, and that she wakes up feeling fresher in the morning and more awake/alert during the day. The [place] Sleepiness Scale score 7. Her notices no snore at all. The average residual AHI is 2.8; and average time in large leak per day is 16 minutes. Her machine is actually not part of the recall (we entered the serial number into [employer] website). It is now 5 years old. Sleep Study - Results Year and Where: 2012 [facility] CPAP Compliance Data - Data Reviewed with Patient Average duration of nightly device use: 7HRS 43MINS 4SECS Compliance rate %: 98.6 (04/08/23-04/06/24) Current pressure setting (cmH2O): 6-10 Average residual AHI: 2.8 Subjective Missed days of use due to: reports: other (N/A) Patient concerns: reports: other (N/A) Current pressure setting perceived as: comfortable Initial [place] Sleepiness Scale score: 7 (in 2013) Current [place] Sleepiness Scale score: 6 (04/12/24) Allergies and Home Medications Drug allergies reviewed: Yes Home medication list reviewed: Yes Allergy and home medication list: Allergies adhesive tape Allergy (Verified 04/12/24 09:37) Rash PAPER TAPE pollen extracts Allergy (Verified 04/12/24 09:37) Respiratory Sulfa (Sulfonamide Antibiotics) Allergy (Verified 04/12/24 09:37) Hives tolterodine Allergy (Verified 04/12/24 09:37) tremors amoxicillin [From Augmentin] Adverse Reaction (Verified 04/12/24 09:37) Unknown baclofen Adverse Reaction (Verified 04/12/24 09:37) Unknown clavulanic acid [From Augmentin] Adverse Reaction (Verified 04/12/24 09:37) Unknown cyclobenzaprine [From Flexeril] Adverse Reaction (Verified 04/12/24 09:37) Unknown hydroxyzine Adverse Reaction (Verified 04/12/24 09:37) Unknown levofloxacin [From Levaquin] Adverse Reaction (Verified 04/12/24 09:37) Unknown Review of Systems Review of systems same as previous: Yes (NO CHANGE) Physical Exam Vital signs obtained and entered by: PATSY Faulkner MA Height: 5 ft 6.5 in (PER PT) Weight: 300 lb (PER PT) Body Mass Index: 47.7 BMI Classification: Morbidly Obese Impression and Plan IMPRESSION: 1. Obstructive Sleep Apnea-Hypopnea Syndrome, severe with the patient doing well on nasal CPAP therapy. She has excellent compliance and significant clinical improvement. The current pressure appears effective and comfortable. Overall, she is very satisfied with the treatment and plans to continue with it long-term. No adjustment is necessary today. Because the CPAP is now older than the useful life of 5 years, I will order the patient a new one and make it an autoCPAP set between 6 and 10 cmH2O. PLAN: 1. Continue with autoCPAP set at 6 - 10 cmH2O. 2. Prescription made for an autoCPAP, heated humidifier, and related supplies. 3. Try to lose weight. 4. Return in one year for follow up or earlier if there is any problem. Counseling Topics: Weight control Prescriptions: Auto CPAP Follow up with Sleep Care in: 1 year Visit Type: Telehealth Phone Time Spent with Patient (minutes): 15 Provider Statement: I spent 100% of the Telehealth Phone Call with the patient with greater than 50% spent counseling the patient and coordination of care.
== END 2024-04-12 11:21 | disposition home or self-care (01) ==
LOC: SC 11:20
PROVIDERS: ATTEND Internal Medicine Pulmonary Disease
DX: G47.33 Obstructive sleep apnea (adult) (pediatric) (principal); E66.01 Morbid (severe) obesity due to excess calories; Z68.42 Body mass index [BMI] 45.0-49.9, adult
CPT/HCPCS: 99442

== ENCOUNTER 2024-04-27 08:37 | Outpatient (CLI) | payer MEDICARE, OTHER ==
[2024-04-27 09:01] LABS: BASOPHILS # (AUTO) 0.1 10^3/uL (0.0-0.1); BASOPHILS % (AUTO) 0.6 %; EOSINOPHILS # (AUTO) 0.2 10^3/uL (0.0-0.7); EOSINOPHILS % (AUTO) 2.8 %; HCT - HEMATOCRIT 43.5 % (37.0-47.0); HGB - HEMOGLOBIN 13.9 g/dL (12.0-16.0); LYMPHOCYTES # (AUTO) 2.7 10^3/uL (1.5-3.5); LYMPHOCYTES % (AUTO) 31.3 %; MEAN CORPUSCULAR HEMOGLOBIN 28.5 pg (27.0-31.0); MEAN CORPUSCULAR VOLUME 89.3 fL (81.0-99.0); MEAN PLATELET VOLUME 11.6 fL (7.9-10.8); MONOCYTES # (AUTO) 0.7 10^3/uL (0.0-1.0); MONOCYTES % (AUTO) 8.7 %; NEUTROPHILS # (AUTO) 4.8 10^3/uL (1.5-6.6); NEUTROPHILS % (AUTO) 56.4 %; PLT - PLATELET COUNT 277 10^3/uL (130-450); RED BLOOD COUNT 4.87 10^6/uL (4.20-5.40); RED CELL DISTRIBUTION WIDTH 14.4 % (12.0-15.0); WHITE BLOOD COUNT 8.5 x10^3/uL (4.8-10.8)
[2024-04-27 09:23] LABS: ALBUMIN 3.8 g/dL (3.2-5.5); ALBUMIN/GLOBULIN RATIO 1.1 (1.0-2.2); ALKALINE PHOSPHATASE 63 IU/L (42-121); ALT ALANINE AMINOTRANSFERASE 12 IU/L (10-60); AST ASPARTATE AMINOTRANSFERASE 17 IU/L (10-42); BILIRUBIN,TOTAL 0.4 mg/dL (0.2-1.0); BUN - BLOOD UREA NITROGEN 12 mg/dL (6-20); CALCIUM 9.3 mg/dL (8.5-10.3); CARBON DIOXIDE - CO2 29 mmol/L (21-32); CHLORIDE 102 mmol/L (101-111); CHOL/HDL RATIO 3.7 (<4.4); CHOLESTEROL 164 mg/dL; CREATININE 1.1 mg/dL (0.6-1.3); GFR - MDRD 48 (>89); GLUCOSE 101 mg/dL (74-104); HDL CHOLESTEROL 44 mg/dL; LDL CHOLESTEROL,CALCULATED 89 mg/dL; POTASSIUM 4.5 mmol/L (3.5-4.5); SODIUM 137 mmol/L (135-145); TOTAL PROTEIN 7.3 g/dL (6.4-8.9); TRIGLYCERIDES 156 mg/dL; VLDL CHOLESTEROL 31 mg/dL
[2024-04-27 09:36] LABS: THYROID STIMULATING HORMONE 0.03 uIU/mL (0.34-5.60)
[2024-04-27 10:16] LABS: ESTIMATED AVERAGE GLUCOSE 126 mg/dL (70-100)
== END 2024-04-27 08:38 | disposition home or self-care (01) ==
LOC: LAB 08:37
PROVIDERS: ATTEND Family Medicine
DX: E11.9 Type 2 diabetes mellitus without complications (principal); M54.16 Radiculopathy, lumbar region; I49.9 Cardiac arrhythmia, unspecified; R03.0 Elevated blood-pressure reading, without diagnosis of hypertension; R32 Unspecified urinary incontinence; C50.912 Malignant neoplasm of unspecified site of left female breast; G47.33 Obstructive sleep apnea (adult) (pediatric); I27.20 Pulmonary hypertension, unspecified
CPT/HCPCS: 36415; 80053; 80061; 83036; 83721; 84439; 84443; 85025